=== PATIENT | female | born 1950 | race Caucasian/White ===

== ENCOUNTER → 2018-03-07 04:00 | Outpatient (CLI) | payer BC, SELFPAY ==
[2018-03-07 10:08] LABS: HCT 35.8 % (36.0-46.0); HGB 11.5 g/dL (12.0-15.5); Lymphocytes % 16.3; Mean Corp. HGB Concentration 32.1 g/dL (32.0-36.0); Mean Corpuscular Hemoglobin 26.6 pg (27.0-33.0); Mean Corpuscular Volume 82.7 fL (80-95); Mean Platelet Volume 10.4 fL (8.0-11.0); Monocytes % 6.3; Platelet Count 327 x1000/uL (130-400); RBC 4.33 m/cumm (4.00-5.20); RBC Distribution Width 15.1 % (11.7-14.6); White Blood Cell Count 7.91 k/cumm (4.4-10.8)
[2018-03-07 10:09] LABS: Abs Immature Grans 0.01 k/cumm (0.0-0.09); Absolute Basophil Count 0.01 k/cumm (0.0-0.2); Absolute Eosinophil Count 0.33 k/cumm (0.0-0.7); Absolute Lymphocyte Count 1.29 k/cumm (1.2-3.4); Absolute Neutrophil Count 5.77 k/cumm (1.2-6.7); Basophils % 0.1; Eosinophils % 4.2; Immature Grans % 0.1
[2018-03-07 10:47] LABS: ESR 26 MM/HR (0-30)
[2018-03-07 11:29] LABS: ALT 26 U/L (12-78); AST 18 U/L (15-37); Alkaline Phosphatase 95 U/L (46-116); BUN 12 mg/dL (7-18); Bilirubin, Total 0.7 mg/dL (0.2-1.0); CREATININE 1.05 mg/dL (0.55-1.02); Chloride 105 mmol/L (98-107); Estimated GFR 52.43 (mL/min/1.73m2); Glucose 100 mg/dL (70-100); Potassium 3.7 mmol/L (3.5-5.1); Sodium 141 mmol/L (136-145); Total Protein 7.2 g/dL (6.4-8.2)
== END ==
PROVIDERS: PCP Nurse Practitioner Family; Visit Provider Internal Medicine Rheumatology
DX: M06.9 Rheumatoid arthritis, unspecified (principal); Z79.899 Other long term (current) drug therapy
CPT/HCPCS: 36415; 80053; 85652; 85025

== ENCOUNTER 2018-07-11 01:55 | Outpatient (CLI) | payer BC, SELFPAY ==
[2018-07-11 08:25] LABS: Abs Immature Grans 0.01 k/cumm (0.0-0.09); Absolute Basophil Count 0.02 k/cumm (0.0-0.2); Absolute Eosinophil Count 0.28 k/cumm (0.0-0.7); Absolute Lymphocyte Count 1.33 k/cumm (1.2-3.4); Absolute Monocyte Count 0.53 k/cumm (0.11-0.7); Absolute Neutrophil Count 6.51 k/cumm (1.2-6.7); Basophils % 0.2; Eosinophils % 3.2; HGB 12.7 g/dL (12.0-15.5); Immature Grans % 0.1; Lymphocytes % 15.3; Mean Corp. HGB Concentration 32.6 g/dL (32.0-36.0); Mean Corpuscular Volume 82.8 fL (80-95); Mean Platelet Volume 10.1 fL (8.0-11.0); Monocytes % 6.1; Neutrophils % 75.1; Platelet Count 341 x1000/uL (130-400); RBC 4.71 m/cumm (4.00-5.20); RBC Distribution Width 14.6 % (11.7-14.6); White Blood Cell Count 8.68 k/cumm (4.4-10.8)
[2018-07-11 09:55] LABS: ALT 20 U/L (12-78); AST 16 U/L (15-37); Albumin 4.3 g/dL (3.4-5.0); Alkaline Phosphatase 93 U/L (46-116); BUN 10 mg/dL (7-18); Bilirubin, Total 0.7 mg/dL (0.2-1.0); CREATININE 0.97 mg/dL (0.55-1.02); Calcium 9.7 mg/dL (8.5-10.1); Chloride 103 mmol/L (98-107); Estimated GFR 57.46 (mL/min/1.73m2); Glucose 90 mg/dL (70-100); Potassium 3.8 mmol/L (3.5-5.1); Sodium 141 mmol/L (136-145); Total Protein 7.6 g/dL (6.4-8.2)
[2018-07-11 09:56] LABS: ESR 23 MM/HR (0-30)
== END 2018-07-11 02:15 ==
PROVIDERS: PCP Nurse Practitioner Family; Visit Provider Internal Medicine Rheumatology
DX: M06.9 Rheumatoid arthritis, unspecified (principal); Z79.899 Other long term (current) drug therapy
CPT/HCPCS: 36415; 80053; 85652; 85025

== ENCOUNTER 2018-12-26 02:14 | Outpatient (CLI) | payer BC, SELFPAY ==
[2018-12-26 11:30] LABS: Absolute Basophil Count 0.03 k/cumm (0.0-0.2); Absolute Eosinophil Count 0.29 k/cumm (0.0-0.7); Absolute Lymphocyte Count 1.19 k/cumm (1.2-3.4); Absolute Monocyte Count 0.31 k/cumm (0.11-0.7); Absolute Neutrophil Count 3.32 k/cumm (1.2-6.7); Basophils % 0.6; Eosinophils % 5.6; HCT 38.6 % (36.0-46.0); HGB 12.7 g/dL (12.0-15.5); Lymphocytes % 23.2; Mean Corp. HGB Concentration 32.9 g/dL (32.0-36.0); Mean Corpuscular Hemoglobin 27.7 pg (27.0-33.0); Mean Corpuscular Volume 84.1 fL (80-95); Mean Platelet Volume 10.8 fL (8.0-11.0); Neutrophils % 64.6; Platelet Count 350 x1000/uL (130-400); RBC 4.59 m/cumm (4.00-5.20); RBC Distribution Width 14.3 % (11.7-14.6); White Blood Cell Count 5.14 k/cumm (4.4-10.8)
[2018-12-26 11:42] LABS: ALT 27 U/L (12-78); AST 18 U/L (15-37); Alkaline Phosphatase 80 U/L (46-116); Anion Gap 9.3 mmol/L (3-11); BUN 9 mg/dL (7-18); Bilirubin, Total 0.7 mg/dL (0.2-1.0); CO2 26.7 mmol/L (21.0-32.0); CREATININE 0.95 mg/dL (0.55-1.02); Calcium 9.5 mg/dL (8.5-10.1); Chloride 103 mmol/L (98-107); Estimated GFR 58.68 (mL/min/1.73m2); Glucose 97 mg/dL (70-100); Potassium 4.3 mmol/L (3.5-5.1); Sodium 139 mmol/L (136-145); Total Protein 7.2 g/dL (6.4-8.2)
[2018-12-26 11:45] LABS: Hemoglobin A1C 5.4 % (4.5-6.2)
[2018-12-26 12:04] LABS: ESR 21 MM/HR (0-30)
[2018-12-26 12:12] LABS: Cholesterol 200 mg/dL (50-200); HDL Cholesterol 81 mg/dL (40-60); LDL CHOLESTEROL 95 mg/dL (<100); TSH 1.78 uIU/mL (0.358-3.74); Triglyceride 127 mg/dL (30-150); Vitamin B12 650 pg/mL (193-986)
[2018-12-26 12:36] LABS: FREE T4 0.91 ng/dL (0.76-1.46)
[2018-12-27 17:01] LABS: Intrinsic Factor Blocking Ab Negative (Negative)
[2018-12-31 20:20] LABS: Parietal Cell Ab, IgG <10.0 U
== END 2018-12-26 02:34 ==
PROVIDERS: PCP Nurse Practitioner Family; Visit Provider Internal Medicine Rheumatology
DX: E78.5 Hyperlipidemia, unspecified (principal); E53.8 Deficiency of other specified B group vitamins; M06.9 Rheumatoid arthritis, unspecified; Z79.899 Other long term (current) drug therapy
CPT/HCPCS: 80053; 80061; 83516; 83721; 85652; 82607; 83036; 84439; 84443; 85025; 86340

== ENCOUNTER 2019-05-22 01:46 | Outpatient (CLI) | payer BC, SELFPAY ==
[2019-05-22 10:28] LABS: ALT 24 U/L (14-59); AST 16 U/L (15-37); Alkaline Phosphatase 78 U/L (46-116); Anion Gap 11.4 mmol/L (3-11); BUN 10 mg/dL (7-18); Bilirubin, Total 0.6 mg/dL (0.2-1.0); CO2 27.6 mmol/L (21.0-32.0); CREATININE 0.99 mg/dL (0.55-1.02); Calcium 9.5 mg/dL (8.5-10.1); Chloride 102 mmol/L (98-107); Estimated GFR 55.95 (mL/min/1.73m2); Glucose 90 mg/dL (70-100); Potassium 4.1 mmol/L (3.5-5.1); Sodium 141 mmol/L (136-145); Total Protein 7.9 g/dL (6.4-8.2)
[2019-05-22 10:31] LABS: Abs Immature Grans 0.01 k/cumm (0.0-0.09); Absolute Basophil Count 0.02 k/cumm (0.0-0.2); Absolute Eosinophil Count 0.42 k/cumm (0.0-0.7); Absolute Lymphocyte Count 1.31 k/cumm (1.2-3.4); Absolute Monocyte Count 0.51 k/cumm (0.11-0.7); Absolute Neutrophil Count 4.31 k/cumm (1.2-6.7); Basophils % 0.3; Eosinophils % 6.4; HCT 36.4 % (36.0-46.0); HGB 11.4 g/dL (12.0-15.5); Immature Grans % 0.2; Lymphocytes % 19.9; Mean Corp. HGB Concentration 31.3 g/dL (32.0-36.0); Mean Corpuscular Hemoglobin 26.7 pg (27.0-33.0); Mean Corpuscular Volume 85.2 fL (80-95); Mean Platelet Volume 10.1 fL (8.0-11.0); Monocytes % 7.8; Neutrophils % 65.4; Platelet Count 353 x1000/uL (130-400); RBC 4.27 m/cumm (4.00-5.20); RBC Distribution Width 14.8 % (11.7-14.6); White Blood Cell Count 6.58 k/cumm (4.4-10.8)
[2019-05-22 12:12] LABS: ESR 43 mm/hr (0-30)
== END 2019-05-22 02:06 ==
PROVIDERS: PCP Nurse Practitioner Family; Visit Provider Internal Medicine Rheumatology
DX: M06.9 Rheumatoid arthritis, unspecified (principal); Z79.899 Other long term (current) drug therapy
CPT/HCPCS: 36415; 80053; 85652; 85025

== ENCOUNTER 2019-07-01 02:22 | Outpatient (CLI) | payer BC, SELFPAY ==
[2019-07-01 11:47] LABS: Abs Immature Grans 0.02 k/cumm (0.0-0.09); Absolute Basophil Count 0.02 k/cumm (0.0-0.2); Absolute Eosinophil Count 0.23 k/cumm (0.0-0.7); Absolute Lymphocyte Count 1.33 k/cumm (1.2-3.4); Absolute Monocyte Count 0.41 k/cumm (0.11-0.7); Absolute Neutrophil Count 4.15 k/cumm (1.2-6.7); Basophils % 0.3; Eosinophils % 3.7; HCT 38.2 % (36.0-46.0); HGB 12.3 g/dL (12.0-15.5); Immature Grans % 0.3; Lymphocytes % 21.6; Mean Corp. HGB Concentration 32.2 g/dL (32.0-36.0); Mean Corpuscular Hemoglobin 26.5 pg (27.0-33.0); Mean Corpuscular Volume 82.3 fL (80-95); Mean Platelet Volume 10.4 fL (8.0-11.0); Monocytes % 6.7; Neutrophils % 67.4; Platelet Count 391 x1000/uL (130-400); RBC 4.64 m/cumm (4.00-5.20); RBC Distribution Width 14.2 % (11.7-14.6); White Blood Cell Count 6.16 k/cumm (4.4-10.8)
[2019-07-01 12:18] LABS: ALT 21 U/L (14-59); AST 15 U/L (15-37); Albumin 4.1 g/dL (3.4-5.0); Alkaline Phosphatase 71 U/L (46-116); Anion Gap 11.3 mmol/L (3-11); BUN 12 mg/dL (7-18); Bilirubin, Total 0.5 mg/dL (0.2-1.0); CO2 25.7 mmol/L (21.0-32.0); CREATININE 0.89 mg/dL (0.55-1.02); Calcium 9.5 mg/dL (8.5-10.1); Chloride 104 mmol/L (98-107); Glucose 93 mg/dL (74-106); Sodium 141 mmol/L (136-145); Total Protein 7.2 g/dL (6.4-8.2)
[2019-07-01 13:57] LABS: ESR 16 mm/hr (0-30)
== END 2019-07-01 02:42 ==
PROVIDERS: PCP Nurse Practitioner Family; Visit Provider Internal Medicine Rheumatology
DX: M06.9 Rheumatoid arthritis, unspecified (principal); Z79.899 Other long term (current) drug therapy
CPT/HCPCS: 36415; 80053; 85652; 85025

== ENCOUNTER 2019-12-30 05:15 | Outpatient (CLI) | payer BC, SELFPAY ==
[2019-12-30 10:05] LABS: Abs Immature Grans 0.01 k/cumm (0.0-0.09); Absolute Basophil Count 0.01 k/cumm (0.0-0.2); Absolute Lymphocyte Count 1.59 k/cumm (1.2-3.4); Absolute Monocyte Count 0.51 k/cumm (0.11-0.7); Basophils % 0.1; Eosinophils % 2.7; HCT 36.9 % (36.0-46.0); HGB 11.9 g/dL (12.0-15.5); Immature Grans % 0.1 %; Lymphocytes % 21.7; Mean Corp. HGB Concentration 32.2 g/dL (32.0-36.0); Mean Corpuscular Hemoglobin 27.1 pg (27.0-33.0); Mean Corpuscular Volume 84.1 fL (80-95); Mean Platelet Volume 10.4 fL (8.0-11.0); Neutrophils % 68.4; Platelet Count 392 x1000/uL (130-400); RBC 4.39 m/cumm (4.00-5.20); RBC Distribution Width 14.8 % (11.7-14.6); White Blood Cell Count 7.32 k/cumm (4.4-10.8)
[2019-12-30 10:35] LABS: ALT 25 U/L (14-59); AST 12 U/L (15-37); Albumin 4.2 g/dL (3.4-5.0); Alkaline Phosphatase 81 U/L (46-116); Anion Gap 7.3 mmol/L (3-11); BUN 9 mg/dL (7-18); Bilirubin, Total 0.4 mg/dL (0.2-1.0); CO2 26.7 mmol/L (21.0-32.0); CREATININE 1.07 mg/dL (0.55-1.02); Calcium 9.5 mg/dL (8.5-10.1); Chloride 103 mmol/L (98-107); Glucose 93 mg/dL (74-106); Potassium 3.9 mmol/L (3.5-5.1); Sodium 137 mmol/L (136-145); Total Protein 7.3 g/dL (6.4-8.2)
[2019-12-30 10:56] LABS: ESR 21 mm/hr (0-30)
== END 2019-12-30 05:35 ==
PROVIDERS: PCP Nurse Practitioner Family; Visit Provider Internal Medicine Rheumatology
DX: M05.9 Rheumatoid arthritis with rheumatoid factor, unspecified (principal); Z79.899 Other long term (current) drug therapy
CPT/HCPCS: 36415; 80053; 85652; 85025

== ENCOUNTER 2020-03-12 01:44 | Outpatient (CLI) | payer BC, SELFPAY ==
--- NOTE | 2020-03-12 06:00 | DI.MAMMO_ITS ---
EXAM: MG MAMMO SCREENING CLINICAL HISTORY: screening,Z12.39 TECHNIQUE: Bilateral full field digital CC and MLO mammographic images were obtained with 3D tomosyn thesis and utilizing computer aided detection (CAD). COMPARISON: Available for comparison. FINDINGS: Masses/Architectural Distortion: None seen. Microcalcifications: No suspicious pleomorphic-type are seen. Skin Thickening/Nipple Retraction: None. IMPRESSION: 1. No significant interval change with no specific features of malignancy noted. 2. Unless there is more urgent need, screening mammography is recommended, as per [employer] guidelines. BI-RADS Category 1 - Negative Breast Density - Category B - Scattered areas of fibroglandular density A negative radiographic report should not delay biopsy if a dominant or clinically suspicious mass is present. Up to ten percent of cancers are not identified on mammography. A negative report may reinforce clinical impression. Adenosis and dense breasts may obscure an underlying neoplasm. False positive reports average 6 to 10%. Patient will receive a letter notifying them of these results.
== END 2020-03-12 02:04 ==
PROVIDERS: PCP Nurse Practitioner Family; Visit Provider Nurse Practitioner Family
DX: Z12.31 Encounter for screening mammogram for malignant neoplasm of breast (principal); R92.2 Inconclusive mammogram
CPT/HCPCS: 77063; 77067

== ENCOUNTER 2020-03-12 01:45 | Outpatient (CLI) | payer BC, SELFPAY ==
--- NOTE | 2020-03-12 | DI.RAD_ITS ---
EXAM: XR SHOULDER RT COMPLETE 2+V CLINICAL HISTORY: CHRONIC RT SHOULDER PAIN,M25.511,G89.29,RA,ASSESS FOR SIGNS OF INFLAMMATORY. TECHNIQUE: 2D digital imaging was performed. COMPARISON: No exams were available for comparison FINDINGS: BONES: No acute fracture is present. No bony destructive lesion is seen. Bones are normally mineraliz ed. JOINTS: No dislocation present. Mild degenerative changes are seen at the acromioclavicular joint linda racterized by hypertrophic spurring. The glenohumeral joint is unremarkable. SOFT TISSUE: Normal. IMPRESSION: Mild degenerative changes of the right acromioclavicular joint. DATA REPOSITORY: RADIATION DOSE DELIVERED:
== END 2020-03-12 02:05 ==
PROVIDERS: PCP Nurse Practitioner Family; Visit Provider Internal Medicine Rheumatology
DX: M19.011 Primary osteoarthritis, right shoulder (principal); G89.29 Other chronic pain; M25.511 Pain in right shoulder
CPT/HCPCS: 73030

== ENCOUNTER 2020-05-12 02:30 | Outpatient (CLI) | payer BC, SELFPAY ==
[2020-05-12 12:31] LABS: Abs Immature Grans 0.01 10^3/uL (0.0-0.06); Absolute Basophil Count 0.03 10^3/uL (0.0-0.2); Absolute Monocyte Count 0.32 10^3/uL (0.1-0.8); Absolute Neutrophil Count 3.41 10^3/uL (1.2-6.7); Basophils % 0.6; Eosinophils % 3.9; HCT 37.9 % (36.0-46.0); HGB 11.9 g/dL (11.2-15.7); Immature Grans % 0.2; Lymphocytes % 23.2; MCH 26.7 pg (27.0-33.0); MCHC 31.4 % (32.0-36.0); MPV 10.6 fL (8.0-11.0); Monocytes % 6.2; Neutrophils % 65.9; Nucleated RBC 0 %; Platelet Count 380 10^3/uL (130-400); RBC 4.46 10^6/uL (3.93-5.22); RDW 14.3 % (11.7-14.6); RDW-SD 43.4 fL; WBC 5.17 10^3/uL (4.4-10.8)
[2020-05-12 12:52] LABS: ALT 22 U/L (14-59); AST 18 U/L (15-37); Albumin 4.2 g/dL (3.4-5.0); Alkaline Phosphatase 75 U/L (46-116); Anion Gap 12.1 mmol/L (3-11); BUN 12 mg/dL (7-18); Bilirubin, Total 0.5 mg/dL (0.2-1.0); CO2 25.9 mmol/L (21.0-32.0); CREATININE 1.01 mg/dL (0.55-1.02); Calcium 9.4 mg/dL (8.5-10.1); Chloride 103 mmol/L (98-107); Estimated GFR 54.51 (mL/min/1.73m2); Glucose 100 mg/dL (74-106); Potassium 4.3 mmol/L (3.5-5.1); Sodium 141 mmol/L (136-145); Total Protein 7.3 g/dL (6.4-8.2)
[2020-05-12 13:14] LABS: Calculated LDL 95 mg/dL (<100); Cholesterol 195 mg/dL (<200); HDL Cholesterol 78 mg/dL (40-60); Triglyceride 112 mg/dL (<150); Vitamin B12 1856 pg/mL (193-986)
[2020-05-12 13:36] LABS: ESR 18 mm/hr (0-30)
[2020-05-13 04:29] LABS: Vitamin D 25 Total 19.4 ng/ml (30-100)
== END 2020-05-12 02:50 ==
PROVIDERS: PCP Nurse Practitioner Family; Visit Provider Internal Medicine Rheumatology
DX: M05.9 Rheumatoid arthritis with rheumatoid factor, unspecified (principal); Z79.899 Other long term (current) drug therapy; E55.9 Vitamin D deficiency, unspecified; E78.5 Hyperlipidemia, unspecified; E53.8 Deficiency of other specified B group vitamins; M85.80 Other specified disorders of bone density and structure, unspecified site
CPT/HCPCS: 36415; 80053; 80061; 82306; 85652; 82607; 85025

== ENCOUNTER 2020-11-01 04:21 | Outpatient (CLI) | payer OTHER, SELFPAY ==
[2020-11-01 12:37] LABS: ESR 22 mm//hr (0-30)
[2020-11-01 12:38] LABS: Abs Immature Grans 0.03 10^3/uL (0.0-0.06); Absolute Basophil Count 0.03 10^3/uL (0.0-0.2); Absolute Eosinophil Count 0.25 10^3/uL (0.0-0.7); Absolute Lymphocyte Count 1.18 10^3/uL (1.2-3.4); Absolute Monocyte Count 0.43 10^3/uL (0.1-0.8); Absolute Neutrophil Count 3.45 10^3/uL (1.2-6.7); Basophils % 0.6; Eosinophils % 4.7; HGB 12.4 g/dL (11.2-15.7); Immature Grans % 0.6; MCH 26.6 pg (27.0-33.0); MCHC 31.8 % (32.0-36.0); MCV 83.7 fL (80-95); MPV 10.8 fL (8.0-11.0); Neutrophils % 64.1; Nucleated RBC 0 %; Platelet Count 346 10^3/uL (130-400); RBC 4.66 10^6/uL (3.93-5.22); RDW 13.8 % (11.7-14.6); RDW-SD 41.2 fL; WBC 5.37 10^3/uL (4.4-10.8)
[2020-11-01 13:03] LABS: ALT 21 U/L (14-59); AST 16 U/L (15-37); Albumin 4.1 g/dL (3.4-5.0); Alkaline Phosphatase 92 U/L (46-116); Anion Gap 11.4 mmol/L (3-11); BUN 11 mg/dL (7-18); Bilirubin, Total 0.2 mg/dL (0.2-1.0); CO2 27.6 mmol/L (21.0-32.0); Calcium 10.2 mg/dL (8.5-10.1); Chloride 102 mmol/L (98-107); Estimated GFR 54.97 (mL/min/1.73m2); Glucose 94 mg/dL (74-106); Potassium 4.1 mmol/L (3.5-5.1); Sodium 141 mmol/L (136-145); Total Protein 7.5 g/dL (6.4-8.2)
[2020-11-01 13:15] LABS: Vitamin D 25 Total 20.3 ng/mL (30-100)
== END 2020-11-01 04:22 | disposition home or self-care (01) ==
LOC: LOS 04:21
PROVIDERS: PCP Nurse Practitioner Family; Visit Provider Internal Medicine Rheumatology
DX: M06.9 Rheumatoid arthritis, unspecified (principal); E55.9 Vitamin D deficiency, unspecified
CPT/HCPCS: 36415; 80053; 82306; 85652; 85025

== ENCOUNTER 2021-02-15 08:30 | Outpatient (CLI) | payer OTHER, SELFPAY ==
[2021-02-15 12:42] LABS: Abs Immature Grans 0.03 10^3/uL (0.0-0.06); Absolute Basophil Count 0.03 10^3/uL (0.0-0.2); Absolute Lymphocyte Count 0.86 10^3/uL (1.2-3.4); Absolute Monocyte Count 0.45 10^3/uL (0.1-0.8); Absolute Neutrophil Count 5.78 10^3/uL (1.2-6.7); Basophils % 0.4; Eosinophils % 2.7; HCT 38.7 % (36.0-46.0); HGB 12.1 g/dL (11.2-15.7); Immature Grans % 0.4; Lymphocytes % 11.7; MCH 27.7 pg (27.0-33.0); MCHC 31.3 % (32.0-36.0); MCV 88.6 fL (80-95); Monocytes % 6.1; Neutrophils % 78.7; Nucleated RBC 0 %; Platelet Count 335 10^3/uL (130-400); RBC 4.37 10^6/uL (3.93-5.22); RDW 13.7 % (11.7-14.6); RDW-SD 44.6 fL; WBC 7.35 10^3/uL (4.4-10.8)
[2021-02-15 12:44] LABS: ESR 6 mm/hr (0-30)
[2021-02-15 13:11] LABS: ALT 19 U/L (14-59); AST 13 U/L (15-37); Albumin 4.1 g/dL (3.4-5.0); Alkaline Phosphatase 74 U/L (46-116); Anion Gap 9.1 mmol/L (3-11); BUN 10 mg/dL (7-18); Bilirubin, Total 0.5 mg/dL (0.2-1.0); CO2 25.9 mmol/L (21.0-32.0); CREATININE 0.9 mg/dL (0.55-1.02); Calcium 9.3 mg/dL (8.5-10.1); Chloride 105 mmol/L (98-107); Glucose 87 mg/dL (74-106); Potassium 4.3 mmol/L (3.5-5.1); Sodium 140 mmol/L (136-145)
== END 2021-02-15 08:31 | disposition home or self-care (01) ==
PROVIDERS: PCP Nurse Practitioner Family; Visit Provider Internal Medicine Rheumatology
DX: M06.9 Rheumatoid arthritis, unspecified (principal)
CPT/HCPCS: 36415; 80053; 85652; 85025

== ENCOUNTER 2021-03-23 01:36 | Outpatient (CLI) | payer OTHER, SELFPAY ==
--- NOTE | 2021-03-23 08:00 | DI.MAMMO_ITS ---
Exam(s) MAMMO SCREENING EXAM: MAMMO SCREENING CLINICAL HISTORY: screening, Z12.39. TECHNIQUE: Bilateral full field digital CC and MLO mammographic images were obtained with 3D tomosyn thesis and utilizing computer aided detection (CAD). COMPARISON: Prior mammograms dating back to 2013, the most recent being February 2020. FINDINGS: There are no new spiculated masses nor malignant appearing microcalcification groups. There is no significant architectural distortion nor skin thickening-retraction. IMPRESSION: No radiographic evidence of malignancy. BI-RADS Category 1 - Negative Breast Density - Category B - Scattered areas of fibroglandular density Breast density Category C or D implies that the patient has dense breast tissue. Dense breast tissue can make it harder to find cancer on a mammogram. Dense breast tissue is also associated with an incr eased risk of breast cancer. This information about the result of the mammogram report was provided to the patient to raise their awareness. Use this report when you speak with the patient about their risks for breast cancer, which includes their family history. At that time, you may recommend additional screening tests (Ultrasoun d or MRI) as these tests may add significant information. A negative radiographic report should not delay biopsy if a dominant or clinically suspicious mass is present. Up to ten percent of cancers are not identified on mammography. A negative report may reinforce clinical impression. Adenosis and dense breasts may obscure an underlying neoplasm. False positive reports average 6 to 10%. Patient will receive a letter notifying them of these results.
== END 2021-03-23 01:56 ==
PROVIDERS: PCP Nurse Practitioner Family; Visit Provider Nurse Practitioner
DX: Z12.31 Encounter for screening mammogram for malignant neoplasm of breast (principal)
CPT/HCPCS: 77063; 77067

== ENCOUNTER 2021-07-13 01:29 | Outpatient (CLI) | payer OTHER, SELFPAY ==
[2021-07-13 12:27] LABS: Abs Immature Grans 0.02 10^3/uL (0.0-0.06); Absolute Basophil Count 0.03 10^3/uL (0.0-0.2); Absolute Eosinophil Count 0.14 10^3/uL (0.0-0.7); Absolute Lymphocyte Count 1.47 10^3/uL (1.2-3.4); Absolute Monocyte Count 0.37 10^3/uL (0.1-0.8); Absolute Neutrophil Count 4.82 10^3/uL (1.2-6.7); Basophils % 0.4; HCT 35.8 % (36.0-46.0); HGB 11.3 g/dL (11.2-15.7); Immature Grans % 0.3; Lymphocytes % 21.5; MCH 26.9 pg (27.0-33.0); MCHC 31.6 % (32.0-36.0); MCV 85.2 fL (80-95); MPV 9.7 fL (8.0-11.0); Monocytes % 5.4; Neutrophils % 70.4; Nucleated RBC 0 %; Platelet Count 371 10^3/uL (130-400); RDW 13.4 % (11.7-14.6); RDW-SD 41.5 fL; WBC 6.85 10^3/uL (4.4-10.8)
[2021-07-13 12:28] LABS: ESR 26 mm/hr (0-30)
[2021-07-13 14:04] LABS: ALT 14 U/L (14-59); AST 13 U/L (15-37); Albumin 3.8 g/dL (3.4-5.0); Alkaline Phosphatase 90 U/L (46-116); Anion Gap 11.4 mmol/L (3-11); BUN 12 mg/dL (7-18); Bilirubin, Total 0.4 mg/dL (0.2-1.0); CO2 25.6 mmol/L (21.0-32.0); CREATININE 0.9 mg/dL (0.55-1.02); Calcium 9.1 mg/dL (8.5-10.1); Chloride 103 mmol/L (98-107); Glucose 86 mg/dL (74-106); Potassium 3.9 mmol/L (3.5-5.1); Sodium 140 mmol/L (136-145); Total Protein 6.9 g/dL (6.4-8.2)
[2021-07-14 00:46] LABS: Vitamin D 25 Total 22.3 ng/mL (30-100)
== END 2021-07-13 01:30 | disposition home or self-care (01) ==
LOC: LBO 01:30
PROVIDERS: Internal Medicine Rheumatology; PCP Nurse Practitioner Family; Visit Provider Nurse Practitioner Family
DX: E55.9 Vitamin D deficiency, unspecified (principal); M06.9 Rheumatoid arthritis, unspecified
CPT/HCPCS: 36415; 80053; 82306; 85652; 85025

== ENCOUNTER 2021-11-16 02:59 | Outpatient (CLI) | payer MEDICARE, SELFPAY ==
[2021-11-16 09:15] LABS: Abs Immature Grans 0.03 10^3/uL (0.0-0.06); Absolute Basophil Count 0.04 10^3/uL (0.0-0.2); Absolute Eosinophil Count 0.24 10^3/uL (0.0-0.7); Absolute Lymphocyte Count 1.02 10^3/uL (1.2-3.4); Absolute Monocyte Count 0.35 10^3/uL (0.1-0.8); Absolute Neutrophil Count 4.85 10^3/uL (1.2-6.7); Basophils % 0.6; Eosinophils % 3.7; HCT 36.2 % (36.0-46.0); HGB 11.2 g/dL (11.2-15.7); Immature Grans % 0.5; Lymphocytes % 15.6; MCH 27.1 pg (27.0-33.0); MCHC 30.9 % (32.0-36.0); MCV 87.7 fL (80-95); MPV 9.6 fL (8.0-11.0); Monocytes % 5.4; Neutrophils % 74.2; Platelet Count 362 10^3/uL (130-400); RBC 4.13 10^6/uL (3.93-5.22); RDW 13.5 % (11.7-14.6); RDW-SD 43.5 fL; WBC 6.53 10^3/uL (4.4-10.8)
[2021-11-16 09:21] LABS: ESR 11 mm/hr (0-30)
[2021-11-16 10:25] LABS: ALT 20 U/L (14-59); AST 18 U/L (15-37); Albumin 4.2 g/dL (3.4-5.0); Alkaline Phosphatase 87 U/L (46-116); Anion Gap 10.2 mmol/L (3-11); BUN 13 mg/dL (7-18); Bilirubin, Total 0.5 mg/dL (0.2-1.0); CO2 26.8 mmol/L (21.0-32.0); CREATININE 0.9 mg/dL (0.55-1.02); Calcium 9.4 mg/dL (8.5-10.1); Chloride 103 mmol/L (98-107); Glucose 97 mg/dL (74-106); Potassium 4.3 mmol/L (3.5-5.1); Sodium 140 mmol/L (136-145); Total Protein 7.3 g/dL (6.4-8.2)
== END 2021-11-16 03:00 | disposition home or self-care (01) ==
LOC: LBO 02:59
PROVIDERS: PCP Nurse Practitioner Family; Visit Provider Internal Medicine Rheumatology
DX: M05.79 Rheumatoid arthritis with rheumatoid factor of multiple sites without organ or systems involvement (principal); Z79.899 Other long term (current) drug therapy
CPT/HCPCS: 36415; 80053; 85652; 85025

== ENCOUNTER 2021-11-23 04:57 | Outpatient (CLI) | payer MEDICARE, SELFPAY ==
[2021-11-25 09:22] LABS: HBs Antibody, Quant 4.2 mIU/mL (See Note); Hepatitis B Surface Ab Negative (See Note)
[2021-11-25 09:37] LABS: Hepatitis B Surface Ag Negative (Negative)
[2021-11-25 10:14] LABS: Hepatitis C Ab w Rflx HCV PCR Negative (Negative)
[2021-11-25 12:54] LABS: TB Interpretation Negative (Negative)
== END 2021-11-23 04:58 | disposition home or self-care (01) ==
LOC: LBO 04:57
PROVIDERS: PCP Nurse Practitioner Family; Visit Provider Internal Medicine Rheumatology
DX: Z11.59 Encounter for screening for other viral diseases (principal)
CPT/HCPCS: 36415; 86706; 86803; 87340; 86480

== ENCOUNTER 2021-12-23 01:37 | Outpatient (CLI) | payer MEDICARE, SELFPAY ==
[2021-12-26 11:44] LABS: Hep B Core Antibody Negative (Negative)
== END 2021-12-23 01:38 | disposition home or self-care (01) ==
LOC: LOS 01:37
PROVIDERS: PCP Nurse Practitioner Family; Visit Provider Internal Medicine Rheumatology
DX: Z11.59 Encounter for screening for other viral diseases (principal)
CPT/HCPCS: 36415; 86704

== ENCOUNTER 2022-04-06 03:18 | Outpatient (CLI) | payer MEDICARE, SELFPAY ==
[2022-04-06 12:21] LABS: Abs Immature Grans 0.02 10^3/uL (0.0-0.06); Absolute Basophil Count 0.03 10^3/uL (0.0-0.2); Absolute Eosinophil Count 0.29 10^3/uL (0.0-0.7); Absolute Lymphocyte Count 1.02 10^3/uL (1.2-3.4); Absolute Monocyte Count 0.38 10^3/uL (0.1-0.8); Absolute Neutrophil Count 4.56 10^3/uL (1.2-6.7); Basophils % 0.5; Eosinophils % 4.6; HCT 36.1 % (36.0-46.0); HGB 11.6 g/dL (11.2-15.7); Immature Grans % 0.3; Lymphocytes % 16.2; MCH 27.5 pg (27.0-33.0); MCHC 32.1 % (32.0-36.0); MCV 86 fL (80-95); MPV 10.5 fL (8.0-11.0); Neutrophils % 72.4; Platelet Count 346 10^3/uL (130-400); RBC 4.22 10^6/uL (3.93-5.22); RDW 15.3 % (11.7-14.6); RDW-SD 46.6 fL
[2022-04-06 12:47] LABS: ESR 8 mm/hr (0-30)
[2022-04-06 12:55] LABS: ALT 21 U/L (14-59); AST 22 U/L (15-37); Albumin 3.9 g/dL (3.4-5.0); Alkaline Phosphatase 75 U/L (46-116); Anion Gap 11.7 mmol/L (3-11); BUN 10 mg/dL (7-18); Bilirubin, Total 0.9 mg/dL (0.2-1.0); CO2 26.3 mmol/L (21.0-32.0); Calcium 9.1 mg/dL (8.5-10.1); Chloride 101 mmol/L (98-107); Estimated GFR 60.61 (mL/min/1.73m2); Glucose 86 mg/dL (74-106); Potassium 3.5 mmol/L (3.5-5.1); Sodium 139 mmol/L (136-145); Total Protein 7.5 g/dL (6.4-8.2)
== END 2022-04-06 03:19 | disposition home or self-care (01) ==
LOC: LOS 03:18
PROVIDERS: PCP Nurse Practitioner Family; Visit Provider Internal Medicine Rheumatology
DX: M06.9 Rheumatoid arthritis, unspecified (principal); Z79.899 Other long term (current) drug therapy
CPT/HCPCS: 36415; 80053; 85652; 85025

== ENCOUNTER 2022-08-04 02:17 | Outpatient (CLI) | payer MEDICARE, SELFPAY ==
[2022-08-04 12:53] LABS: Abs Immature Grans 0.01 10^3/uL (0.0-0.06); Absolute Basophil Count 0.03 10^3/uL (0.0-0.2); Absolute Eosinophil Count 0.28 10^3/uL (0.0-0.7); Absolute Lymphocyte Count 1.13 10^3/uL (1.2-3.4); Absolute Monocyte Count 0.29 10^3/uL (0.1-0.8); Absolute Neutrophil Count 3.49 10^3/uL (1.2-6.7); Basophils % 0.6; Eosinophils % 5.4; HCT 34.3 % (36.0-46.0); HGB 10.5 g/dL (11.2-15.7); Immature Grans % 0.2; Lymphocytes % 21.6; MCH 27.1 pg (27.0-33.0); MCHC 30.6 % (32.0-36.0); MCV 88 fL (80-95); MPV 9.8 fL (8.0-11.0); Monocytes % 5.5; Neutrophils % 66.7; Platelet Count 336 10^3/uL (130-400); RBC 3.88 10^6/uL (3.93-5.22); RDW 14.8 % (11.7-14.6); RDW-SD 47.1 fL; WBC 5.23 10^3/uL (4.4-10.8)
[2022-08-04 13:00] LABS: ALT 17 U/L (14-59); AST 18 U/L (15-37); Alkaline Phosphatase 78 U/L (46-116); Anion Gap 9.1 mmol/L (3-11); BUN 15 mg/dL (7-18); Bilirubin, Total 0.4 mg/dL (0.2-1.0); C-Reactive Protein 0.32 mg/dL (0.0-0.3); CO2 25.9 mmol/L (21.0-32.0); Calcium 9.1 mg/dL (8.5-10.1); Chloride 104 mmol/L (98-107); Estimated GFR 60.61 (mL/min/1.73m2); Glucose 103 mg/dL (74-106); Potassium 3.8 mmol/L (3.5-5.1); Sodium 139 mmol/L (136-145); Total Protein 7.4 g/dL (6.4-8.2); Uric Acid 5.5 mg/dL (2.6-6.0)
== END 2022-08-04 02:18 | disposition home or self-care (01) ==
LOC: LOS 02:18
PROVIDERS: PCP Nurse Practitioner Family; Visit Provider Internal Medicine Rheumatology
DX: M05.79 Rheumatoid arthritis with rheumatoid factor of multiple sites without organ or systems involvement (principal); Z79.899 Other long term (current) drug therapy; M25.561 Pain in right knee
CPT/HCPCS: 36415; 80053; 84550; 85025; 86140

== ENCOUNTER 2022-10-14 12:04 | Emergency (ER) | payer MEDICARE, SELFPAY ==
--- NOTE | 2022-10-14 12:00 | RT.EKG_ITS ---
APPROVED REPORT Exam: Resting ECG Reason for Exam: chest pain Patient Location: E HR:103 bpm ECG Measurements Heart Rate 103 AXIS AZ 150 P 55 QRSd 94 QRS 50 QT 355 T 9 QTc 466 Conclusion Sinus tachycardia...rate> 99 Probable left atrial enlargement...P >50mS, <-0.10mV V1 Physician: no stemi, Q3T3
[2022-10-14 12:08] VITALS: BP 177/61; PULSE 109; RESP 18; TEMP 37.3; O2SAT 99
--- NOTE | 2022-10-14 12:15 | DI.CT_ITS ---
Exam(s) CT CHEST PE CTA EXAM: CT CHEST PE CTA CLINICAL HISTORY: cough, SOB, r/o PE. TECHNIQUE: Imaging Protocol: Axial CT angiography was performed with multi-slice acquisition and mu lti-planar and/or 3D reconstructions. CONTRAST MATERIAL: Intravenous: Omnipaque 350 contrast volume:69 mL COMPARISON: No exams were available for comparison FINDINGS: Tracheobronchial tree: Patent where visualized. Pulmonary parenchyma: No consolidation or dominant measurable mass. No architectural distortion. Pulmonary Arteries: No evidence of filling defect to suggest pulmonary emboli. Mediastinum and Anai: No dominant adenopathy or fluid collection. The esophagus is unremarkable. Visualized thyroid gland: Unremarkable. Pleura: No effusion or pneumothorax. Heart: The heart is not dilated. Coronary artery calcifications are present. No pericardial effusion . Aorta: Thoracic aorta non-dilated. No evidence of dissection. Atherosclerosis is present. Upper abdomen: Unremarkable. Soft tissues: Unremarkable. Bones: Within normal limits for the patient's age. IMPRESSION: No evidence of pulmonary embolism, thoracic aortic dissection or aneurysm. RADIATION DOSE DELIVERED: 432.23mGy.cm Total DLP DATA REPOSITORY: All CT scans at this facility are submitted to the National Radiology Data Registry (NRDR) Dose Index Registry (DIR) with the [employer] (ACR). RADIATION OPTIMIZATION: All CT scans at this facility use at least one of these dose optimization te chniques: automated exposure control; mA and/or kV adjustment per patient size (includes targeted exa ms where dose is matched to clinical indication); or iterative reconstruction.
[2022-10-14] MEDS: Normal Saline 1,000 ML 1000 ML IV (12:35)
[2022-10-14 12:43] LABS: HCT 22.6 % (36.0-46.0); HGB 7.3 g/dL (11.2-15.7); MCH 28.7 pg (27.0-33.0); MCHC 32.3 % (32.0-36.0); MCV 89 fL (80-95); MPV 10.6 fL (8.0-11.0); Platelet Count 124 10^3/uL (130-400); RBC 2.54 10^6/uL (3.93-5.22); RDW 17.3 % (11.7-14.6); RDW-SD 52.9 fL; WBC 9.61 10^3/uL (4.4-10.8)
[2022-10-14 13:02] LABS: ALT 24 U/L (14-59); AST 20 U/L (15-37); Absolute Eosinophil Count 0.19 10^3/uL (0.0-0.7); Absolute Lymphocyte Count 1.54 10^3/uL (1.2-3.4); Absolute Monocyte Count 0.29 10^3/uL (0.1-0.8); Absolute Neutrophil Count 3.46 10^3/uL (1.2-6.7); Albumin 4.2 g/dL (3.4-5.0); Alkaline Phosphatase 80 U/L (46-116); Anion Gap 11.3 mmol/L (3-11); Atypical Lymphocytes % 4; BUN 13 mg/dL (7-18); Bands % 1; Bilirubin, Total 0.3 mg/dL (0.2-1.0); CO2 23.7 mmol/L (21.0-32.0); CREATININE 1.2 mg/dL (0.55-1.02); Calcium 9.3 mg/dL (8.5-10.1); Chloride 101 mmol/L (98-107); Estimated GFR 48.39 (mL/min/1.73m2); Glucose 120 mg/dL (74-106); Lipase 30 U/L (16-77); Potassium 3.5 mmol/L (3.5-5.1); Sodium 136 mmol/L (136-145); Total Protein 7.3 g/dL (6.4-8.2)
[2022-10-14 13:03] LABS: Diff Comment Manual Differential; Polychromasia Present
[2022-10-14 13:05] LABS: INR 1.1 (0.9-1.1); Other Cells % 43; PTT Activated 22.4 sec (21.5-31.9); Prothrombin Time 11.1 sec (9.3-11.0)
--- NOTE | 2022-10-14 13:06 | ED.GENADUL_ITS ---
Discharge Plan Disposition Patient Disposition: Home Condition: Good Discharge Details Clinical Impression: Chronic gastrointestinal bleeding, Anemia Primary Care Provider: Dominique Damon ED Provider: Tomas Chairez Home Meds and New Rx's Prescriptions: New pantoprazole [Protonix] 40 mg tablet,delayed release (DR/EC) 40 mg PO DAILY Qty: 60 0RF famotidine 40 mg tablet 40 mg PO BID Qty: 90 0RF No Action methotrexate sodium 2.5 mg tablet 15 mg PO QWEEK Patient Comments: [place]rich[place] [facility] [place] varicella-zoster gE-AS01B (PF) 50 mcg/0.5 mL suspension for reconstitution 0.5 ml IM ONCE Qty: 1 0RF Patient Comments: has not had Rx Instructions: 2 doses 2 months apart amlodipine 10 mg tablet 10 mg PO DAILY Qty: 90 4RF lansoprazole [Prevacid] 30 mg capsule,delayed release(DR/EC) 30 mg PO DAILY Qty: 90 4RF sertraline [Zoloft] 50 mg tablet 75 mg PO DAILY Qty: 145 4RF simvastatin 20 mg tablet 20 mg PO HS Qty: 90 4RF aspirin 325 MG tablet 325 mg PO DAILY ferrous sulfate 325 MG tablet 325 mg PO DAILY hydroxychloroquine [Plaquenil] 200 MG tablet 200 mg PO BID Qty: 180 calcium carbonate 500 MG tablet 500 mg PO DAILY Patient Comments: 05/09/16: 750mg PO daily. -BR triamcinolone acetonide 15 GM cream 1 gm Topical BID PRNQty: 80 Rx Instructions: apply a pea sized amount to the arms as needed acyclovir 200 MG capsule 200 mg PO QID PRNQty: 60 cholecalciferol (vitamin D3) 1,000 unit capsule 2,000 unit PO DAILY Qty: 90 Discharge Instructions Instructions: Anemia (ED) Additional Instructions: At this time you have a drop in your blood levels, this is likely from a slow bleed in your gastrointestinal tract. Please stop taking aspirin for the time being. Please take the famotidine and pantoprazole to help prevent any upper gastrointestinal bleed. Please avoid any spicy foods, tomato-based products or mint based products. We have placed a referral with the surgeon for prompt follow-up for potential colonoscopy. Additionally there is a slight abnormality noted in your blood cell counts, and your blood has been sent to pathology for further review. Please follow-up closely with your primary care provider in regards to this. If you notice any worsening of your symptoms, or any new symptoms such as vo miting, diarrhea, fever, chills, shortness of breath, chest pain, numbness, weakness, or fainting , please return immediately to the emergency department for reevaluation. Please follow up with your primary care provider as soon as possible for reassessment and reevaluation. As always, it was a pleasure participating in your medical care today. Referrals: Dominique Damon NP [Primary Care Provider] - Edilson Mosley MD [ [facility] STAFF PHYSICIAN] - Medical Decision Making 72-year-old female with a past medical history of GERD, hypertension, mild anxiety, osteopenia, high cholesterol, rheumatoid arthritis, who presents today for evaluation of shortness of breath. Patient states that for the last week she has had mild shortness of breath, it is worsened with activity, and slightly improved by rest. She has no associated exertional chest pain or pleuritic chest pain. She did have a brief episode of chest pain last evening while at rest, and it went away on its own. She has had a cough with mild yellow sputum for the past week. She has also noticed over the last few months that she has been on and off persistently sick with a mild upper respiratory infection which she attributes to her grandchildren. Denies PE risk factors such as recent long car rides, immobilization, recent surgery, prior history of DVT or PE, family history of PE or DVT, morbid obesity, exogenous estrogen and smoking, hemoptysis, history of cancer. No other complaints at this time. No history of cardiac disease. She did smoke when she was young, but quit in the 90s. Physical exam demonstrates well-appearing female, heart rate mildly elevated, lungs are clear. No calf tenderness. EKG shows no evidence of STEMI but does demonstrate evidence of a Q wave and inverted T wave in lead III. Concern for potential pulmonary embolism, pneumonia, or other abnormality. Cardiac etiology seems less likely. Will evaluate for these etiologies, monitor closely and reassess. 3:38 PM Laboratory work-up has returned, hemoglobin is taken a drop to 7.3, this is a three-point drop since her last hemoglobin 1-1/2 months ago. Hemoccult test was performed and it is positive, patient does take a 325 aspirin every day, she states for no apparent medical reason but she has just been doing this for quite some time. We recommended that she hold off on this for the time being. Laboratory work-up did show evidence of increased blasts, and they will be sending this for pathology. Electrolytes stable, creatinine stable. Troponin normal. Patient feels much improved with the blood and fluids. She is requesting to go home and be discharged. I do feel that this is reasonable as she is not having a massive GI bleed. She does need prompt colonoscopy and follow-up though. She does have a strong family history of colon cancer. We will recommend that the patient stops taking aspirin for the time being, we will start the patient on Protonix and famotidine outpatient to prevent any upper GI bleed component. She has been given Protonix here already. Patient is otherwise stable for discharge. We will have her reassessed by the signout provider once of blood products are done, but otherwise patient can follow-up closely with outpatient services at her request. CT scan shows no evidence of pulmonary embolism, dissection, or other significant abnormality. I have extensively reviewed the treatment plan and discharge instructions with the patient. I have addressed all patient concerns at this time. The patient was made aware of what symptoms to monitor for that would warrant a return to the emergency department. Discussed the plan with the patient, they demonstrate verbal understanding and agreement with our assessment and plan at this time. The documentation in this chart was dictated using [employer] dictation software. Please excuse any dictation errors. FINDINGS: Pulmonary arteries: No evidence of pulmonary embolus. Aorta: Mild calcifications of the thoracic aorta. Low-density line at the left lateral aspect of the ascending thoracic aorta on the coronal reconstructions appear to extend into the main pulmonary artery and is more likely motion artifact and is not a dissection. Lungs: Unremarkable. No consolidation. No masses. Pleural spaces: Unremarkable. No pneumothorax. No pleural effusion. Heart: Unremarkable. No cardiomegaly. No pericardial effusion. Lymph nodes: Unremarkable. No enlarged lymph nodes. Bones/joints: Mild degenerative changes in the thoracic spine. No suspicious lytic or blastic bone lesions. Soft tissues: Unremarkable. IMPRESSION: No evidence of pulmonary embolus or other acute findings Thank you for allowing us to participate in the care of your patient. Dictated and Authenticated by: Inocente Azevedo MD 10/14/2022 3:15 PM Eastern Time ([place] & [place]) HPI General Date/Time Provider Initiated Documentation: 10/14/22 12:21 . HPI Narrative: 72-year-old female with a past medical history of GERD, hypertension, mild anxiety, osteopenia, high cholesterol, rheumatoid arthritis, who presents today for evaluation of shortness of breath. Patient states that for the last week she has had mild shortness of breath, it is worsened with activity, and sli ghtly improved by rest. She has no associated exertional chest pain or pleuritic chest pain. She did have a brief episode of chest pain last evening while at rest, and it went away on its own. She has had a cough with mild yellow sputum for the past week. She has also noticed over the last few months that she has been on and off persistently sick with a mild upper respiratory infection which she attributes to her grandchildren. Denies PE risk factors such as recent long car rides, immobilization, recent surgery, prior history of DVT or PE, family history of PE or DVT, morbid obesity, exogenous estrogen and smoking, hemoptysis, history of cancer. No other complaints at this time. No history of cardiac disease. Related Data Home Medications Medication Instructions Recorded Confirmed aspirin 325 mg tablet 325 mg PO DAILY 05/21/13 10/14/22 ferrous sulfate 325 mg (65 mg 325 mg PO DAILY 05/21/13 10/14/22 iron) tablet hydroxychloroquine 200 mg tablet 200 mg PO BID #180 tab-caps 06/12/13 10/14/22 (Plaquenil) calcium carbonate 500 mg calcium 500 mg PO DAILY 05/09/16 10/14/22 (1,250 mg) tablet acyclovir 200 mg capsule 200 mg PO QID PRN #60 tab-caps 12/18/17 10/14/22 triamcinolone acetonide 0.1 % 1 gm topical BID PRN #80 grams 12/18/17 10/14/22 topical cream cholecalciferol (vitamin D3) 25 2,000 unit PO DAILY #90 tab-caps 12/25/18 10/14/22 mcg (1,000 unit) capsule methotrexate sodium 2.5 mg tablet 15 mg PO QWEEK 12/25/18 10/14/22 varicella-zoster glycoE vacc-AS01B 0.5 ml IM ONCE #1 ea 02/21/21 10/14/22 adj(PF) 50 mcg/0.5 mL IM susp, kit amlodipine 10 mg tablet 10 mg PO DAILY #90 tabs 04/05/22 10/14/22 lansoprazole 30 mg capsule,delayed 30 mg PO DAILY #90 caps 04/05/22 10/14/22 release (Prevacid) sertraline 50 mg tablet (Zoloft) 75 mg PO DAILY #145 tabs 04/05/22 10/14/22 simvastatin 20 mg tablet 20 mg PO HS #90 tabs 04/05/22 10/14/22 famotidine 40 mg tablet 40 mg PO BID #90 tabs 10/14/22 pantoprazole 40 mg tablet,delayed 40 mg PO DAILY #60 tabs 10/14/22 release (Protonix) Previous Rx's Medication Instructions Recorded varicella-zoster glycoE vacc-AS01B 0.5 ml IM ONCE #1 ea 02/21/21 adj(PF) 50 mcg/0.5 mL IM susp, kit amlodipine 10 mg tablet 10 mg PO DAILY #90 tabs 04/05/22 lansoprazole 30 mg capsule,delayed 30 mg PO DAILY #90 caps 04/05/22 release (Prevacid) sertraline 50 mg tablet (Zoloft) 75 mg PO DAILY #145 tabs 04/05/22 simvastatin 20 mg tablet 20 mg PO HS #90 tabs 04/05/22 famotidine 40 mg tablet 40 mg PO BID #90 tabs 10/14/22 pantoprazole 40 mg tablet,delayed 40 mg PO DAILY #60 tabs 10/14/22 release (Protonix) Allergies Allergy/AdvReac Type Severity Reaction Status Date / Time Sulfa (Sulfonamide Allergy Intermediate swelling, Verified 10/14/22 12:53 Antibiotics) rash General Stated Complaint: RespSymp CHRISTOPHER: 3 Review of Systems All systems reviewed & are unremarkable except as noted in HPI and below PFSH All Active Problems (Updated 10/14/22 @ 15:42 by Tomas Chairez DO) Chronic gastrointestinal bleeding (Acute) Anemia (Chronic) Rheumatoid arthritis (Chronic) [place] [facility] [place]. 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 Son No problems noted. Maternal Grandfather , at 52 Multiple sclerosis Heart disease Maternal Grandmother , at 56 of stroke Stroke Heart disease Hypertension Paternal Grandfather , at 74 Lung cancer Paternal Grandmother , at 85 Dementia Social History Smoking/Tobacco Use Status: Former Tobacco Use Tobacco: How many years used: 20 Second Hand Exposure: No Smoking risk assessment performed?: Yes Alcohol Intake: former Drug use: Never Substance use type: does not use Caregiver/Support person: No Household members: none Housing: house Number of Children: 2 number of grandchildren: 5 Communication Needs: None Do you need help understanding health information?: Never 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 Pets and animals: Yes Pets and animals: cat(s) Sexually active: No Do you think of yourself as: straight/heterosexual Current gender identity: female What is your relationship status?: How often do you talk on the phone with friends or family?: three or more times per week How often do you get together with friends or relatives?: twice per week How often do you attend taoist or restoration services?: 1-3 times per year Do you belong to any clubs or organized social groups?: no Panel score (0-1 are the most socially isolated patients): 1 What type of physical activity do you participate in: walking Duration: 15-30 minutes/day Frequency: 3-4 times per week Milla/Taoist: Latter-Day Special milla needs: No Seatbelt use: always Helmet use: No Drive intox or ride w/intox lease purchase driver: No Additional Social history: Enjoys golfing Female Reproductive History Menstrual Menopause type: natural History History 2 Para 2 Hx # Term Pregnancies Multiple births Hx # Pregnancies Ectopic pregnancies AB induced Hx Number of Living Children 2 AB spontaneous Exam Narrative Exam Narrative: 1.Const: Well-nourished, Well-developed, appearing stated age 2.Eyes: PERRL, no conjunctival injection, and symmetrical lids. 3.ENT: Atraumatic external nose and ears. Moist MM. Neck: Symmetric, trachea midline, No thyromegaly. 4.CVS: +S1/S2, No murmurs or gallops. Peripheral pulses 2+ and equal in all extremities. Brisk capillary refill in all extremities. 5.RESP: Unlabored respiratory effort. Clear to auscultation bilaterally. No wheezes rales or rhonchi 6.GI: Soft, Nontender/Nondistended, No hepatosplenomegaly. No guarding or rebound. 7.MSK: Normocephalic/Atraumatic, Extremities w/o deformity or ttp No cyanosis or clubbing, Normal movement of all extremities, no calf tenderness 8.Skin: Warm, Dry. No rashes or lesions. 9.Neuro: air quality manager II-XII grossly intact. Sensation grossly intact, no focal neurologic deficits. 10.Psych: (AAO) x3. Appropriate mood and affect Course Vital Signs Vital signs: Vital Signs Temperature 37.3 C 10/14/22 12:08 Pulse 109 H 10/14/22 12:08 Respiratory Rate 18 10/14/22 12:08 Blood Pressure 177/61 H 10/14/22 12:08 Pulse Oximetry 99 10/14/22 12:08 Temperature 37.3 C 10/14/22 12:08 Temperature Source Oral 10/14/22 12:08 Pulse 109 H 10/14/22 12:08 Respiratory Rate 18 10/14/22 12:08 Respiratory Effort Short of Breath 10/14/22 12:22 Respiratory Depth Normal 10/14/22 12:22 Blood Pressure 177/61 H 10/14/22 12:08 Pulse Oximetry 99 10/14/22 12:08 Oxygen Delivery Method Room Air 10/14/22 12:08 Oxygen Flow Rate 0 03/18/23 12:08 Lab/Test Results Lab/Test Results: Laboratory Tests Range/Units 10/14/22 10/14/22 12:35 12:35 WBC (4.4-10.8) 10^3/uL 9.61 RBC (3.93-5.22) 10^6/uL 2.54 L Hgb (11.2-15.7) g/dL 7.3 L Hct (36.0-46.0) % 22.6 L MCV (80-95) fL 89 MCH (27.0-33.0) pg 28.7 MCHC (32.0-36.0) % 32.3 RDW (11.7-14.6) % 17.3 H Plt Count (130-400) 10^3/uL 124 L MPV (8.0-11.0) fL 10.6 Immature Gran % 0.0 Neutrophils % 35.0 Band Neutrophils % 1 Lymphocytes % 12.0 Atypical Lymphs % 4 Monocytes % 3.0 Eosinophils % 2.0 Basophils % 0.0 Other Cells % 43 Nucleated RBC % (0.0-0.3) % 1.0 H Absolute Neutrophils (1.2-6.7) 10^3/uL 3.46 Absolute Lymphocytes (1.2-3.4) 10^3/uL 1.54 Absolute Monocytes (0.1-0.8) 10^3/uL 0.29 Absolute Eosinophils (0.0-0.7) 10^3/uL 0.19 Absolute Basophils (0.0-0.2) 10^3/uL 0.00 RBC Morphology See Below Polychromasia Present Lipase Cancelled POCUS Exam (ED) Limited Cardiac Exam DATE OF EXAM: 10/14/22 TIME OF EXAM: 13:54 PROVIDER THAT PERFORMED THE STUDY: Tomas Chairez IS THIS A REPEAT EXAM DURING THIS ENCOUNTER: no REASON FOR EXAM: Dyspnea VISUALIZED STRUCTURES: Left atrium, Left ventricle, Right ventricle and Interventricular septum VIEW OBTAINED: Parasternal long-axis PERTINENT FINDINGS/IMPRESSION: No apparent abnormalities Exam complete
[2022-10-14 13:08] LABS: Troponin I < 50 ng/L (<or=60)
[2022-10-14] MEDS: Omnipaque 350 MG/ML 100 ML BTL IJ (14:02)
[2022-10-14 14:03] LABS: COVID-19 PCR Negative (Negative); Influenza A PCR Negative (Negative); Influenza B PCR Negative (Negative); RSV PCR Negative (Negative)
[2022-10-14] MEDS: Normal Saline - Diluent 50 ML VIAL IJ (14:03)
[2022-10-14 14:07] LABS: Source Nasopharynx
[2022-10-14 14:12] VITALS: BP 156/54; PULSE 99; RESP 18; TEMP 37.1; O2SAT 97
[2022-10-14] MEDS: Pantoprazole 40 MG VIAL IVP (14:15)
[2022-10-14] MEDS: Sucralfate 1 GM TAB PO (14:18)
--- NOTE | 2022-10-14 15:16 | DI.VRAD_ITS ---
PROCEDURE INFORMATION: Exam: CTA Chest With Contrast Exam date and time: 10/14/2022 1:54 PM Age: 72 years old Clinical indication: Shortness of breath TECHNIQUE: Imaging protocol: Computed tomographic angiography of the chest with contrast. 3D rendering (Not supervised by radiologist): MIP and/or 3D reconstructed images were created by the technologist. COMPARISON: CR XR SHOULDER RT COMPLETE 2+V 03/12/2020 7:49 AM FINDINGS: Pulmonary arteries: No evidence of pulmonary embolus. Aorta: Mild calcifications of the thoracic aorta. Low-density line at the left lateral aspect of the ascending thoracic aorta on the coronal reconstructions appear to extend into the main pulmonary artery and is more likely motion artifact and is not a dissection. Lungs: Unremarkable. No consolidation. No masses. Pleural spaces: Unremarkable. No pneumothorax. No pleural effusion. Heart: Unremarkable. No cardiomegaly. No pericardial effusion. Lymph nodes: Unremarkable. No enlarged lymph nodes. Bones/joints: Mild degenerative changes in the thoracic spine. No suspicious lytic or blastic bone lesions. Soft tissues: Unremarkable. IMPRESSION: No evidence of pulmonary embolus or other acute findings. Dictated and Authenticated by: Inocente Azevedo MD. Ordering:VERONIKA Marin MD
--- NOTE | 2022-10-14 15:36 | NUR.NOTE ---
Nursing Note: Referral faxed to [facility] Surgery for GI bleed/ in 1 week.
[2022-10-14 16:44] VITALS: BP 139/54; PULSE 95; RESP 16; TEMP 37.3; O2SAT 97
[2022-10-14 16:50] VITALS: BP 136/56; PULSE 94; RESP 16; TEMP 37.2; O2SAT 96
[2022-10-14 16:59] VITALS: BP 144/63; PULSE 88; RESP 16; TEMP 37.3; O2SAT 96
[2022-10-14 17:32] VITALS: BP 150/58; PULSE 88; RESP 16; TEMP 36.8; O2SAT 98
== END 2022-10-14 17:45 | disposition home or self-care (01) ==
PROVIDERS: Emergency Provider Student in an Organized Health Care Education/Training Program; PCP Nurse Practitioner Family
DX: K92.2 Gastrointestinal hemorrhage, unspecified (principal); D64.9 Anemia, unspecified; I10 Essential (primary) hypertension; R00.2 Palpitations; Z79.82 Long term (current) use of aspirin; Z20.822 Contact with and (suspected) exposure to COVID-19
CPT/HCPCS: 36415; 71275; 80053; 83690; 86850; 86900; 86901; 86920; 87637; 93005; 93308; 96361; 96374; 99285; 84484; 85025; 85610; 85730; 93010; J3490; P9016

== ENCOUNTER 2022-10-18 03:32 | Outpatient (CLI) | payer MEDICARE, SELFPAY ==
[2022-10-18 12:29] LABS: HGB 8.1 g/dL (11.2-15.7); MCH 29.7 pg (27.0-33.0); MCHC 32.4 % (32.0-36.0); MCV 92 fL (80-95); Platelet Count 68 10^3/uL (130-400); RBC 2.73 10^6/uL (3.93-5.22); RDW 18.4 % (11.7-14.6); RDW-SD 58.1 fL
[2022-10-18 12:53] LABS: Total Iron Binding Capacity 348 ug/dL (250-450)
[2022-10-18 13:12] LABS: Ferritin 73 ng/mL (8-252)
[2022-10-18 13:35] LABS: Absolute Eosinophil Count 0.39 10^3/uL (0.0-0.7); Absolute Lymphocyte Count 0.39 10^3/uL (1.2-3.4); Absolute Monocyte Count 0.19 10^3/uL (0.1-0.8)
[2022-10-18 13:37] LABS: Diff Comment Manual Differential; Other Cells % 79
[2022-10-18 13:38] LABS: Anisocytosis 1+; Bands % 1; Polychromasia Present
== END 2022-10-18 03:33 | disposition home or self-care (01) ==
LOC: LOS 03:32
PROVIDERS: PCP Nurse Practitioner Family; Visit Provider Nurse Practitioner Family
DX: K92.2 Gastrointestinal hemorrhage, unspecified (principal)
CPT/HCPCS: 36415; 82728; 83550; 85025

== ENCOUNTER 2022-11-17 07:01 | Emergency (ER) | payer MEDICARE, SELFPAY ==
[2022-11-17] VITALS (49 sets, daily range): BP systolic 107–156; BP diastolic 33–85; PULSE 73–106; RESP 14–28; TEMP 36.6–36.9; O2SAT 95–100
--- NOTE | 2022-11-17 07:00 | RT.EKG_ITS ---
APPROVED REPORT Exam: Resting ECG Reason for Exam: Dyspnea Patient Location: E HR:95 bpm ECG Measurements Heart Rate 95 AXIS IA 143 P 63 QRSd 92 QRS 57 QT 358 T 17 QTc 450 Conclusion Sinus rhythm...normal P axis, V-rate 60- 99 Physician: no stemi, q wave in III is more significant than prior ekg
--- NOTE | 2022-11-17 07:19 | W.ED.GENAD ---
Discharge Plan Discharge Details Chief Complaint: GI Bleed Primary Care Provider: Dominique Damon ED Provider: Tomas Chairez Home Meds and New Rx's Prescriptions: No Action methotrexate sodium 2.5 mg tablet 15 mg PO QWEEK Patient Comments: Prescribed by Dr. Goodrich, [facility] [place] Rheumatology varicella-zoster [id number]-AS01B (PF) 50 mcg/0.5 mL suspension for reconstitution 0.5 ml IM ONCE Qty: 1 0RF Patient Comments: has not had Rx Instructions: 2 doses 2 months apart amlodipine 10 mg tablet 10 mg PO DAILY Qty: 90 4RF lansoprazole [Prevacid] 30 mg capsule,delayed release(DR/EC) 30 mg PO DAILY Qty: 90 4RF sertraline [Zoloft] 50 mg tablet 75 mg PO DAILY Qty: 145 4RF simvastatin 20 mg tablet 20 mg PO HS Qty: 90 4RF aspirin 325 MG tablet 325 mg PO DAILY ferrous sulfate 325 MG tablet 325 mg PO DAILY hydroxychloroquine [Plaquenil] 200 MG tablet 200 mg PO BID Qty: 180 calcium carbonate 500 MG tablet 500 mg PO DAILY Patient Comments: 05/09/16: 750mg PO daily. -BR triamcinolone acetonide 15 GM cream 1 gm Topical BID PRNQty: 80 Rx Instructions: apply a pea sized amount to the arms as needed acyclovir 200 MG capsule 200 mg PO QID PRNQty: 60 cholecalciferol (vitamin D3) 1,000 unit capsule 2,000 unit PO DAILY Qty: 90 lorazepam 0.5 mg tablet 0.5 mg PO DAILY PRN (Reason: anxiety) Qty: 20 0RF pantoprazole [Protonix] 40 mg tablet,delayed release (DR/EC) 40 mg PO DAILY Qty: 60 0RF famotidine 40 mg tablet 40 mg PO BID Qty: 90 0RF Medical Decision Making This is an extremely pleasant 72-year-old female with a past medical history new onset atrial fibrillation during chemotherapy, acute myelogenous leukemia, FLT-3 positive, 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 She is currently on Levaquin, fluconazole, and acyclovir secondary to being cytopenic. She has been receiving a few RBC transfusions over the last few weeks. She presents today for shortness of breath. She has noticed a slight increase in shortness of breath over the last few days. She has noticed a small amount of bright red blood per rectum occasionally. She is not on any anticoagulants or aspirin anymore. Secondary to her cytopenias she has not been able to have an EGD or colonoscopy. Last night she had a significant episode of diarrhea with bright red blood and clots in it. Since then she has been significantly more short of breath. She denies any chest pain. She denies any vomiting. She denies any hematemesis. No other complaints at this time. No other modifying factors. Physical exam demonstrates a pale appearing female, heart rate elevated, blood pressure stable. Will not perform digital rectal exam secondary to immunocompromise state. History is clearly sufficient in this scenario. Patient is on Protonix already, we will add these here through IV form as well as famotidine. We will check the patient's hemoglobin level. Most recent hemoglobin level was 2 days ago on 11/16 where she had a WBC of 0.43, hemoglobin of 6.5, and platelets of 13. Her absolute neutrophil count was 0.01. We will gently rehydrate as she also appears dehydrated. We will get a D-dimer out of concern for potential PE although this is less likely. EKG shows no STEMI, but she does have a Q wave in lead III as well as an inverted T wave in lead III. No broad terminal S wave in lead I. Patient will be signed out to my colleague Dr. Craig for follow-up on labs and imaging and final disposition. HPI General Date/Time Provider Initiated Documentation: 11/17/22 07:05. 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 She is currently on Levaquin, fluconazole, and acyclovir secondary to being cytopenic. She has been receiving a few RBC transfusions over the last few weeks. She presents today for shortness of breath. She has noticed a slight increase in shortness of breath over the last few days. She has noticed a small amount of bright red blood per rectum occasionally. She is not on any anticoagulants or aspirin anymore. Secondary to her cytopenias she has not been able to have an EGD or colonoscopy. Last night she had a significant episode of diarrhea with bright red blood and clots in it. Since then she has been significantly more short of breath. She denies any chest pain. She denies any vomiting. She denies any hematemesis. No other complaints at this time. No other modifying factors. Related Data Home Medications Medication Instructions Recorded Confirmed aspirin 325 mg tablet 325 mg PO DAILY 05/21/13 11/17/22 ferrous sulfate 325 mg (65 mg 325 mg PO DAILY 05/21/13 11/17/22 iron) tablet hydroxychloroquine 200 mg tablet 200 mg PO BID #180 tab-caps 06/12/13 11/17/22 (Plaquenil) calcium carbonate 500 mg calcium 500 mg PO DAILY 05/09/16 11/17/22 (1,250 mg) tablet acyclovir 200 mg capsule 200 mg PO QID PRN #60 tab-caps 12/18/17 11/17/22 triamcinolone acetonide 0.1 % 1 gm topical BID PRN #80 grams 12/18/17 11/17/22 topical cream cholecalciferol (vitamin D3) 25 2,000 unit PO DAILY #90 tab-caps 12/25/18 11/17/22 mcg (1,000 unit) capsule methotrexate sodium 2.5 mg tablet 15 mg PO QWEEK 12/25/18 11/17/22 varicella-zoster glycoE [id number]-AS01B 0.5 ml IM ONCE #1 ea 02/21/21 11/17/22 adj(PF) 50 mcg/0.5 mL IM susp, kit amlodipine 10 mg tablet 10 mg PO DAILY #90 tabs 04/05/22 11/17/22 lansoprazole 30 mg capsule,delayed 30 mg PO DAILY #90 caps 04/05/22 11/17/22 release (Prevacid) sertraline 50 mg tablet (Zoloft) 75 mg PO DAILY #145 tabs 04/05/22 11/17/22 simvastatin 20 mg tablet 20 mg PO HS #90 tabs 04/05/22 11/17/22 famotidine 40 mg tablet 40 mg PO BID #90 tabs 10/14/22 11/17/22 pantoprazole 40 mg tablet,delayed 40 mg PO DAILY #60 tabs 10/14/22 11/17/22 release (Protonix) lorazepam 0.5 mg tablet 0.5 mg PO DAILY PRN anxiety #20 11/16/22 11/17/22 tabs Previous Rx's Medication Instructions Recorded varicella-zoster glycoE vacc-AS01B 0.5 ml IM ONCE #1 ea 02/21/21 adj(PF) 50 mcg/0.5 mL IM susp, kit amlodipine 10 mg tablet 10 mg PO DAILY #90 tabs 04/05/22 lansoprazole 30 mg capsule,delayed 30 mg PO DAILY #90 caps 04/05/22 release (Prevacid) sertraline 50 mg tablet (Zoloft) 75 mg PO DAILY #145 tabs 04/05/22 simvastatin 20 mg tablet 20 mg PO HS #90 tabs 04/05/22 famotidine 40 mg tablet 40 mg PO BID #90 tabs 10/14/22 pantoprazole 40 mg tablet,delayed 40 mg PO DAILY #60 tabs 10/14/22 release (Protonix) lorazepam 0.5 mg tablet 0.5 mg PO DAILY PRN anxiety #20 11/16/22 tabs Allergies Allergy/AdvReac Type Severity Reaction Status Date / Time Sulfa (Sulfonamide Allergy Intermediate swelling, Verified 11/17/22 07:10 Antibiotics) rash General Stated Complaint: GI Bleed CHRISTOPHER: 3 Review of Systems All systems reviewed & are unremarkable except as noted in HPI and below PFSH All Active Problems Acute myeloid leukemia (Acute ~09/2022) Rheumatoid arthritis (Chronic) Followed by [facility] [place] Rheumatology, Dr. 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 Son No problems noted. Maternal Grandfather , at 52 Multiple sclerosis Heart disease Maternal Grandmother , at 56 of stroke Stroke Heart disease Hypertension Paternal Grandfather , at 74 Lung cancer Paternal Grandmother , at 85 Dementia Social History Smoking/Tobacco Use Status: Former Tobacco Use Tobacco: How many years used: 20 Second Hand Exposure: No Smoking risk assessment performed?: Yes Alcohol Intake: former Drug use: Never Substance use type: does not use Caregiver/Support person: No Household members: none Housing: house Number of Children: 2 number of grandchildren: 5 Communication Needs: None Do you need help understanding health information?: Never 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 Pets and animals: Yes Pets and animals: cat(s) Sexually active: No Do you think of yourself as: straight/heterosexual Current gender identity: female What is your relationship status?: How often do you talk on the phone with friends or family?: three or more times per week How often do you get together with friends or relatives?: twice per week How often do you attend yazidi or latter day services?: 1-3 times per year Do you belong to any clubs or organized social groups?: no Panel score (0-1 are the most socially isolated patients): 1 What type of physical activity do you participate in: walking Duration: 15-30 minutes/day Frequency: 3-4 times per week Milla/Yarsanism: Presybeterian Special milla needs: No Seatbelt use: always Helmet use: No Drive intox or ride w/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 3.ENT: Atraumatic external nose and ears. Moist MM. Neck: Symmetric, trachea midline, No thyromegaly. 4.CVS: +S1/S2, No murmurs or gallops. Peripheral pulses 2+ and equal in all extremities. Brisk capillary refill in all extremities. 5.RESP: Unlabored respiratory effort. Clear to auscultation bilaterally. No wheezes rales or rhonchi 6.GI: Soft, Nontender/Nondistended, No hepatosplenomegaly. No guarding or rebound. 7.MSK: Normocephalic/Atraumatic, Extremities w/o deformity or ttp No cyanosis or clubbing, Normal movement of all extremities 8.Skin: Quite pale appearing 9.Neuro: health insurance specialist II-XII grossly intact. Sensation grossly intact, no focal neurologic deficits. 10.Psych: (AAO) x3. Appropriate mood and affect Course Vital Signs Vital signs: Vital Signs Temperature 36.7 C 11/17/22 07:05 Pulse 106 H 11/17/22 07:05 Respiratory Rate 20 11/17/22 07:05 Blood Pressure 156/56 H 11/17/22 07:05 Pulse Oximetry 99 11/17/22 07:05 Temperature 36.7 C 11/17/22 07:05 Pulse 106 H 11/17/22 07:05 Respiratory Rate 20 11/17/22 07:05 Respiratory Effort Short of Breath 11/17/22 07:12 Blood Pressure 156/56 H 11/17/22 07:05 Blood Pressure Position Sitting 11/17/22 07:05 Pulse Oximetry 99 11/17/22 07:05 Oxygen Delivery Method Room Air 11/17/22 07:05 Oxygen Flow Rate 0 11/17/22 07:05
[2022-11-17] MEDS: Normal Saline 500 ML IV (07:23)
[2022-11-17 07:29] LABS: MCHC 35.2 % (32.0-36.0); MCV 82 fL (80-95); MPV 10.9 fL (8.0-11.0); RBC 2.21 10^6/uL (3.93-5.22); RDW 13.7 % (11.7-14.6)
[2022-11-17] MEDS: FAMOTIDINE 20 MG in Normal Saline 100 ML 400 MG IVPB (07:34)
[2022-11-17] MEDS: Pantoprazole 40 MG VIAL IVP (07:35)
[2022-11-17 07:43] LABS: ALT 19 U/L (14-59); AST 15 U/L (15-37); Albumin 3.1 g/dL (3.4-5.0); Alkaline Phosphatase 146 U/L (46-116); BUN 26 mg/dL (7-18); Bilirubin, Total 0.8 mg/dL (0.2-1.0); CREATININE 1.1 mg/dL (0.55-1.02); Calcium 8.4 mg/dL (8.5-10.1); Chloride 109 mmol/L (98-107); Estimated GFR 53.72 (mL/min/1.73m2); Glucose 129 mg/dL (74-106); Potassium 3.6 mmol/L (3.5-5.1); Sodium 141 mmol/L (136-145); Total Protein 5.6 g/dL (6.4-8.2)
[2022-11-17 07:49] LABS: Absolute Neutrophil Count 0.03 10^3/uL (1.2-6.7)
[2022-11-17 07:50] LABS: Absolute Lymphocyte Count 0.52 10^3/uL (1.2-3.4); HCT 18.2 % (36.0-46.0); HGB 6.4 g/dL (11.2-15.7); Platelet Count 13 10^3/uL (130-400); WBC 0.55 10^3/uL (4.4-10.8)
[2022-11-17 07:51] LABS: Diff Comment Manual Differential; RBC Morphology Normal
[2022-11-17 07:52] LABS: INR 1.1 (0.9-1.1); PTT Activated 21.4 sec (21.5-31.9); Prothrombin Time 10.7 sec (9.3-11.0)
[2022-11-17 08:08] LABS: D-Dimer 525 ng/mlFEU (<500)
--- NOTE | 2022-11-17 10:17 | ED.PROG_ITS ---
Date of service: 11/17/22 Time of Service: 10:17 Medical Decision Making Care was signed out by Dr. Chairez, please see his documentation regarding initial ED presentation and course. Plan at signout was to follow-up on labs and discussed case with [facility] transfer center for transfer. Labs reviewed and age-adjusted D-dimer normal. Patient remains anemic. She did receive 2 units of PRBCs yesterday. I spoke with the lab who notes patient does not require irradiated PRBCs given orders from heme-onc yesterday. Patient received 2 units of PRBCs now. 855 -- I have called [facility] transfer center and requested transfer. Awaiting callback. 1000-- I called [facility] transfer center again to request update in the note patient will likely be accepted ED to ED, transfer center attempting to identify accepting physician. 1110 --Dr. Sharpe called from [facility], discussed ED presentation and course, he will except the patient in transfer. Lab Data Lab results reviewed: Yes I reviewed the patient's lab results. Labs: Laboratory Tests Range/Units 11/17/22 11/17/22 11/17/22 07:11 07:11 07:11 WBC (4.4-10.8) 10^3/uL 0.55 L* RBC (3.93-5.22) 10^6/uL 2.21 L Hgb (11.2-15.7) g/dL 6.4 L* Hct (36.0-46.0) % 18.2 L* MCV (80-95) fL 82 MCH (27.0-33.0) pg 29.0 MCHC (32.0-36.0) % 35.2 RDW (11.7-14.6) % 13.7 Plt Count (130-400) 10^3/uL 13 L* MPV (8.0-11.0) fL 10.9 Immature Gran % 0.0 Neutrophils % 6.0 Lymphocytes % 94.0 Monocytes % 0.0 Eosinophils % 0.0 Basophils % 0.0 Nucleated RBC % (0.0-0.3) % 0.0 Absolute Neutrophils (1.2-6.7) 10^3/uL 0.03 L* Absolute Lymphocytes (1.2-3.4) 10^3/uL 0.52 L Absolute Monocytes (0.1-0.8) 10^3/uL 0.00 L Absolute Eosinophils (0.0-0.7) 10^3/uL 0.00 Absolute Basophils (0.0-0.2) 10^3/uL 0.00 RBC Morphology Normal PT (9.3-11.0) sec 10.7 INR (0.9-1.1) 1.1 APTT (21.5-31.9) sec 21.4 L D-Dimer (<500) ng/mlFEU 525 H Sodium (136-145) mmol/L 141 Potassium (3.5-5.1) mmol/L 3.6 Chloride (98-107) mmol/L 109 H Carbon Dioxide (21.0-32.0) mmol/L 23.0 Anion Gap (3-11) mmol/L 9.0 BUN (7-18) mg/dL 26 H Creatinine (0.55-1.02) mg/dL 1.1 H Est GFR (CKD-EPI 2020) (mL/min/1.73m2) 53.72 Glucose (74-106) mg/dL 129 H Calcium (8.5-10.1) mg/dL 8.4 L Total Bilirubin (0.2-1.0) mg/dL 0.8 AST (15-37) U/L 15 ALT (14-59) U/L 19 Alkaline Phosphatase (46-116) U/L 146 H Total Protein (6.4-8.2) g/dL 5.6 L Albumin (3.4-5.0) g/dL 3.1 L Patient ABO/Rh Antibody Screen Crossmatch Range/Units 11/17/22 07:11 WBC (4.4-10.8) 10^3/uL RBC (3.93-5.22) 10^6/uL Hgb (11.2-15.7) g/dL Hct (36.0-46.0) % MCV (80-95) fL MCH (27.0-33.0) pg MCHC (32.0-36.0) % RDW (11.7-14.6) % Plt Count (130-400) 10^3/uL MPV (8.0-11.0) fL Immature Gran % Neutrophils % Lymphocytes % Monocytes % Eosinophils % Basophils % Nucleated RBC % (0.0-0.3) % Absolute Neutrophils (1.2-6.7) 10^3/uL Absolute Lymphocytes (1.2-3.4) 10^3/uL Absolute Monocytes (0.1-0.8) 10^3/uL Absolute Eosinophils (0.0-0.7) 10^3/uL Absolute Basophils (0.0-0.2) 10^3/uL RBC Morphology PT (9.3-11.0) sec INR (0.9-1.1) APTT (21.5-31.9) sec D-Dimer (<500) ng/mlFEU Sodium (136-145) mmol/L Potassium (3.5-5.1) mmol/L Chloride (98-107) mmol/L Carbon Dioxide (21.0-32.0) mmol/L Anion Gap (3-11) mmol/L BUN (7-18) mg/dL Creatinine (0.55-1.02) mg/dL Est GFR (CKD-EPI 2020) (mL/min/1.73m2) Glucose (74-106) mg/dL Calcium (8.5-10.1) mg/dL Total Bilirubin (0.2-1.0) mg/dL AST (15-37) U/L ALT (14-59) U/L Alkaline Phosphatase (46-116) U/L Total Protein (6.4-8.2) g/dL Albumin (3.4-5.0) g/dL Patient ABO/Rh O Positive Antibody Screen NEGATIVE Crossmatch See Detail Critical Care Time Critical Care Time Critical Care Time: Yes Total Critical Care Time: 40 Attestation: I spent greater than 40 minutes addressing this patient's immediate life threats. Please see MDM section of note. This time was spent engaged in work directly related to the patient's care, exclusive of separate procedures, and failure to initiate these interventions would have likely resulted in clinically significant or life threatening deterioration in the patient's condition. Blood transfusion for severe anemia with active GI bleed. Sign Out Sign Out Data: Sign Out Comment: Neutropenic, cytopenic, bright red blood per rectum, follow-up on labs and imaging with recommended consult for oncology/hematology at [facility] Last updated by Tomas Chairez DO at 11/17/22 07:28 Discharge Plan Disposition Patient Disposition: Transfer-Acute Inpatient Care Specific Acute Inpt Facility: [facility] Discharge Details Clinical Impression: Acute GI bleeding, Anemia, Thrombocytopenia Primary Care Provider: Dominique Damon ED Provider: Milo Craig [place] Meds and New Rx's Prescriptions: No Action simvastatin 20 mg tablet 20 mg PO HS Qty: 90 4RF trazodone 50 mg tablet 50 mg PO DAILY PRN (Reason: insomnia) Qty: 90 3RF prochlorperazine maleate [Compazine] 10 mg tablet 10 mg PO Q6H PRN (Reason: nausea and vomiting) Qty: 90 1RF triamcinolone acetonide 15 GM cream 1 gm Topical BID PRNQty: 80 Rx Instructions: apply a pea sized amount to the arms as needed cholecalciferol (vitamin D3) 1,000 unit capsule 2,000 unit PO DAILY Qty: 90 lorazepam 0.5 mg tablet 0.5 mg PO DAILY PRN (Reason: anxiety) Qty: 20 0RF acyclovir 400 mg tablet 400 mg PO BID Qty: 30 0RF Rx Instructions: Per [facility] Hem/Onc 10/18/22 fluconazole 200 mg tablet 400 mg PO DAILY Qty: 30 0RF Rx Instructions: Per [facility] Hem/ONC 10/18/22 folic acid 1 mg tablet 1 mg PO DAILY Qty: 30 0RF Rx Instructions: Per [facility] HEM/ONC 10/18/22 levofloxacin 750 mg tablet 750 mg PO DAILY Qty: 30 0RF Rx Instructions: 10/18/22 Per [facility] Hem/Onc sertraline 100 mg tablet 100 mg PO DAILY Qty: 90 3RF gilteritinib 40 mg tablet 80 mg PO DAILY Rx Instructions: 12/01/22 Rx'd by Hem/Onc. -hb venetoclax 100 mg tablet 100 mg PO DAILY Rx Instructions: 12/01/22 Rx'd by Heme/Onc pantoprazole [Protonix] 40 mg tablet,delayed release (DR/EC) 40 mg PO DAILY Qty: 60 0RF Discharge Data Discharge Date/Time-TO BE ENTERED AT DEPARTURE: 11/17/22 11:40
== END 2022-11-17 11:40 | disposition short-term general hospital (02) ==
PROVIDERS: Student in an Organized Health Care Education/Training Program; Emergency Provider Student in an Organized Health Care Education/Training Program; PCP Nurse Practitioner Family
DX: D64.9 Anemia, unspecified (principal); D69.6 Thrombocytopenia, unspecified; K62.5 Hemorrhage of anus and rectum; R06.02 Shortness of breath; I48.91 Unspecified atrial fibrillation; Z79.82 Long term (current) use of aspirin; Z79.899 Other long term (current) drug therapy
CPT/HCPCS: 36415; 80053; 86850; 86900; 86901; 86920; 93005; 96365; 96375; 99291; 85025; 85379; 85610; 85730; 93010; P9016

== ENCOUNTER 2022-11-24 00:56 | Outpatient (RCR) | payer MEDICARE, SELFPAY ==
[2022-11-13 08:25] LABS: HCT 24.5 % (36.0-46.0); HGB 8.6 g/dL (11.2-15.7); MCH 29.6 pg (27.0-33.0); MCHC 35.1 % (32.0-36.0); MCV 84 fL (80-95); MPV 12.1 fL (8.0-11.0); RBC 2.91 10^6/uL (3.93-5.22); RDW 13.5 % (11.7-14.6); RDW-SD 40.8 fL
[2022-11-13 08:26] LABS: Absolute Lymphocyte Count 0.41 10^3/uL (1.2-3.4)
[2022-11-13 08:41] LABS: Diff Comment Manual Differential
[2022-11-13 08:42] LABS: RBC Morphology Normal
[2022-11-13 08:48] LABS: Absolute Neutrophil Count 0.02 10^3/uL (1.2-6.7); Platelet Count 19 10^3/uL (130-400)
[2022-11-13 08:49] LABS: WBC 0.43 10^3/uL (4.4-10.8)
[2022-11-14 13:13] VITALS: BP 137/70; PULSE 88; RESP 17; TEMP 35.7; O2SAT 99
[2022-11-14] MEDS: Normal Saline Flush 10 ML SYR IV (13:18)
[2022-11-14 13:32] VITALS: BP 120/70; PULSE 80; RESP 17; TEMP 36.4; O2SAT 100
[2022-11-16] VITALS (12 sets, daily range): BP systolic 104–142; BP diastolic 64–73; PULSE 74–92; RESP 16–18; TEMP 35.8–37.1; O2SAT 97–100
[2022-11-16 08:22] LABS: MCH 29.7 pg (27.0-33.0); MCHC 35.7 % (32.0-36.0); MCV 83 fL (80-95); MPV 10.1 fL (8.0-11.0); RBC 2.19 10^6/uL (3.93-5.22); RDW 13.1 % (11.7-14.6); RDW-SD 39.3 fL
[2022-11-16 08:28] LABS: ALT 22 U/L (14-59); AST 12 U/L (15-37); Albumin 3.4 g/dL (3.4-5.0); Alkaline Phosphatase 167 U/L (46-116); Anion Gap 12.4 mmol/L (3-11); BUN 25 mg/dL (7-18); Bilirubin, Total 0.7 mg/dL (0.2-1.0); CO2 22.6 mmol/L (21.0-32.0); CREATININE 1.1 mg/dL (0.55-1.02); Calcium 8.9 mg/dL (8.5-10.1); Chloride 106 mmol/L (98-107); Estimated GFR 53.72 (mL/min/1.73m2); Glucose 126 mg/dL (74-106); Potassium 3.5 mmol/L (3.5-5.1); Sodium 141 mmol/L (136-145); Total Protein 6.4 g/dL (6.4-8.2)
[2022-11-16 08:43] LABS: Absolute Lymphocyte Count 0.42 10^3/uL (1.2-3.4)
[2022-11-16 08:45] LABS: Diff Comment Manual Differential; Microcytosis 1+
[2022-11-16 08:48] LABS: Platelet Count 13 10^3/uL (130-400)
[2022-11-16 08:49] LABS: HGB 6.5 g/dL (11.2-15.7); WBC 0.43 10^3/uL (4.4-10.8)
[2022-11-16 08:50] LABS: HCT 18.2 % (36.0-46.0)
[2022-11-16 08:51] LABS: Absolute Neutrophil Count 0.01 10^3/uL (1.2-6.7)
[2022-11-16] MEDS: Normal Saline Flush 10 ML SYR IV (14:02)
[2022-11-23 08:17] LABS: HCT 26.7 % (36.0-46.0); HGB 9.2 g/dL (11.2-15.7); MCH 29.5 pg (27.0-33.0); MCHC 34.5 % (32.0-36.0); MCV 86 fL (80-95); MPV 9.8 fL (8.0-11.0); RBC 3.12 10^6/uL (3.93-5.22); RDW 14.2 % (11.7-14.6); RDW-SD 44.1 fL
[2022-11-23] MEDS: Normal Saline Flush 10 ML SYR IV (08:33)
[2022-11-23 08:57] LABS: Absolute Lymphocyte Count 0.32 10^3/uL (1.2-3.4); Absolute Monocyte Count 0.09 10^3/uL (0.1-0.8); Absolute Neutrophil Count 1.01 10^3/uL (1.2-6.7)
[2022-11-23 08:58] LABS: Absolute Basophil Count 0.01 10^3/uL (0.0-0.2); Absolute Eosinophil Count 0.01 10^3/uL (0.0-0.7); Metamyelocytes % 1
[2022-11-23 09:00] LABS: Platelet Count 18 10^3/uL (130-400); WBC 1.47 10^3/uL (4.4-10.8)
[2022-11-24 09:24] VITALS: BP 128/65; PULSE 80; RESP 17; TEMP 37.1; O2SAT 98
[2022-11-24 09:47] VITALS: BP 127/63; PULSE 82; RESP 17; TEMP 37; O2SAT 98
== END 2022-11-26 23:59 | disposition home or self-care (01) ==
LOC: INF 00:56
PROVIDERS: Internal Medicine Hematology & Oncology; PCP Nurse Practitioner Family; Visit Provider Internal Medicine Hematology & Oncology
DX: C92.00 Acute myeloblastic leukemia, not having achieved remission (principal)
CPT/HCPCS: 36415; 36430; 80053; 86850; 86900; 86901; 86920; 85025; P9016; P9035

== ENCOUNTER 2022-12-26 03:19 | Outpatient (RCR) | payer MEDICARE, SELFPAY ==
[2022-11-27 00:02] VITALS: BP 127/63; PULSE 82; RESP 17; TEMP 37
[2022-11-27 08:42] LABS: Abs Immature Grans 0.07 10^3/uL (0.0-0.06); HCT 26.4 % (36.0-46.0); HGB 8.9 g/dL (11.2-15.7); MCH 29.8 pg (27.0-33.0); MCHC 33.7 % (32.0-36.0); MCV 88 fL (80-95); RBC 2.99 10^6/uL (3.93-5.22); RDW 13.6 % (11.7-14.6); RDW-SD 42.6 fL
[2022-11-27 09:02] LABS: Platelet Count 58 10^3/uL (130-400)
[2022-11-27 09:03] LABS: Absolute Lymphocyte Count 0.44 10^3/uL (1.2-3.4); Absolute Monocyte Count 0.08 10^3/uL (0.1-0.8); Absolute Neutrophil Count 0.77 10^3/uL (1.2-6.7); Bands % 1; Diff Comment Manual Differential; Metamyelocytes % 4; Myelocytes % 2; Polychromasia Present
[2022-11-27 09:08] LABS: WBC 1.37 10^3/uL (4.4-10.8)
[2022-11-27] MEDS: Normal Saline Flush 10 ML SYR IVP (09:41)
[2022-11-30 08:38] LABS: Abs Immature Grans 0.06 10^3/uL (0.0-0.06); Absolute Basophil Count 0.02 10^3/uL (0.0-0.2); Absolute Monocyte Count 0.31 10^3/uL (0.1-0.8); Absolute Neutrophil Count 1.83 10^3/uL (1.2-6.7); Basophils % 0.8; HCT 27.5 % (36.0-46.0); HGB 9.3 g/dL (11.2-15.7); Immature Grans % 2.3; Lymphocytes % 15.3; MCH 30.7 pg (27.0-33.0); MCHC 33.8 % (32.0-36.0); MCV 91 fL (80-95); Monocytes % 11.8; Neutrophils % 69.8; Platelet Count 167 10^3/uL (130-400); RBC 3.03 10^6/uL (3.93-5.22); RDW 14.9 % (11.7-14.6); RDW-SD 43.3 fL; WBC 2.62 10^3/uL (4.4-10.8)
[2022-12-11] MEDS: Normal Saline Flush 10 ML SYR IVP (07:35)
[2022-12-11 07:42] LABS: Abs Immature Grans 0.04 10^3/uL (0.0-0.06); Absolute Basophil Count 0.02 10^3/uL (0.0-0.2); Absolute Eosinophil Count 0.03 10^3/uL (0.0-0.7); Absolute Lymphocyte Count 0.58 10^3/uL (1.2-3.4); Absolute Monocyte Count 0.61 10^3/uL (0.1-0.8); Absolute Neutrophil Count 3.46 10^3/uL (1.2-6.7); Basophils % 0.4; Eosinophils % 0.6; HCT 33.1 % (36.0-46.0); HGB 10.5 g/dL (11.2-15.7); Immature Grans % 0.8; Lymphocytes % 12.2; MCH 29.7 pg (27.0-33.0); MCHC 31.7 % (32.0-36.0); MCV 94 fL (80-95); MPV 9.6 fL (8.0-11.0); Monocytes % 12.9; Neutrophils % 73.1; Platelet Count 464 10^3/uL (130-400); RBC 3.53 10^6/uL (3.93-5.22); RDW 16.5 % (11.7-14.6); RDW-SD 54.5 fL; WBC 4.74 10^3/uL (4.4-10.8)
[2022-12-11 08:09] LABS: ALT 16 U/L (14-59); AST 11 U/L (15-37); Albumin 3.6 g/dL (3.4-5.0); Alkaline Phosphatase 143 U/L (46-116); Anion Gap 8.5 mmol/L (3-11); BUN 9 mg/dL (7-18); Bilirubin, Total 0.4 mg/dL (0.2-1.0); CO2 26.5 mmol/L (21.0-32.0); Calcium 9.6 mg/dL (8.5-10.1); Chloride 104 mmol/L (98-107); Estimated GFR 60.23 (mL/min/1.73m2); Glucose 101 mg/dL (74-106); Potassium 4.1 mmol/L (3.5-5.1); Sodium 139 mmol/L (136-145); Total Protein 7.1 g/dL (6.4-8.2)
[2022-12-18 08:06] LABS: Abs Immature Grans 0.04 10^3/uL (0.0-0.06); Absolute Basophil Count 0.01 10^3/uL (0.0-0.2); Absolute Eosinophil Count 0.09 10^3/uL (0.0-0.7); Absolute Lymphocyte Count 0.79 10^3/uL (1.2-3.4); Absolute Monocyte Count 0.45 10^3/uL (0.1-0.8); Absolute Neutrophil Count 4.72 10^3/uL (1.2-6.7); Basophils % 0.2; Eosinophils % 1.5; HCT 34.6 % (36.0-46.0); HGB 10.9 g/dL (11.2-15.7); Immature Grans % 0.7; MCH 29.5 pg (27.0-33.0); MCHC 31.5 % (32.0-36.0); MCV 94 fL (80-95); MPV 9.9 fL (8.0-11.0); Monocytes % 7.4; Neutrophils % 77.2; Platelet Count 340 10^3/uL (130-400); RDW 16.1 % (11.7-14.6); RDW-SD 54.4 fL
[2022-12-18] MEDS: Normal Saline Flush 10 ML SYR IVP (08:20)
[2022-12-18] MEDS: Heparin 500 UNITS/5 ML SYRINGE IV (08:23)
[2022-12-26] MEDS: Normal Saline Flush 10 ML SYR IVP ×2 (08:22→08:43)
[2022-12-26 08:34] LABS: Abs Immature Grans 0.01 10^3/uL (0.0-0.06); Absolute Basophil Count 0.01 10^3/uL (0.0-0.2); Absolute Lymphocyte Count 0.63 10^3/uL (1.2-3.4); Absolute Monocyte Count 0.46 10^3/uL (0.1-0.8); Absolute Neutrophil Count 2.85 10^3/uL (1.2-6.7); Basophils % 0.2; Eosinophils % 2.5; HCT 35.3 % (36.0-46.0); HGB 11.3 g/dL (11.2-15.7); Immature Grans % 0.2; Lymphocytes % 15.5; MCH 29.7 pg (27.0-33.0); MCV 93 fL (80-95); MPV 9.7 fL (8.0-11.0); Monocytes % 11.3; Neutrophils % 70.3; Platelet Count 242 10^3/uL (130-400); RDW-SD 54.8 fL; WBC 4.06 10^3/uL (4.4-10.8)
[2022-12-26] MEDS: Heparin 500 UNITS/5 ML SYRINGE IV (08:43)
== END 2022-12-27 23:59 | disposition home or self-care (01) ==
LOC: INF 03:19
PROVIDERS: Internal Medicine Hematology & Oncology; PCP Nurse Practitioner Family; Visit Provider Internal Medicine Hematology & Oncology
DX: C92.00 Acute myeloblastic leukemia, not having achieved remission (principal); Z45.2 Encounter for adjustment and management of vascular access device
CPT/HCPCS: 36415; 36591; 80053; 86900; 86901; 85025

== ENCOUNTER 2023-01-25 08:05 | Outpatient (RCR) | payer MEDICARE, SELFPAY ==
[2022-12-28 00:03] VITALS: BP 127/63; PULSE 82; RESP 17; TEMP 37
[2023-01-01] MEDS: Heparin 500 UNITS/5 ML SYRINGE IV (08:23)
[2023-01-01] MEDS: Normal Saline Flush 10 ML SYR IVP (08:23)
[2023-01-01 08:33] LABS: Abs Immature Grans 0.01 10^3/uL (0.0-0.06); Absolute Basophil Count 0.01 10^3/uL (0.0-0.2); Absolute Eosinophil Count 0.09 10^3/uL (0.0-0.7); Absolute Lymphocyte Count 0.63 10^3/uL (1.2-3.4); Absolute Monocyte Count 0.34 10^3/uL (0.1-0.8); Absolute Neutrophil Count 2.61 10^3/uL (1.2-6.7); Basophils % 0.3; Eosinophils % 2.4; HCT 35.5 % (36.0-46.0); HGB 11.5 g/dL (11.2-15.7); Immature Grans % 0.3; Lymphocytes % 17.1; MCH 29.7 pg (27.0-33.0); MCHC 32.4 % (32.0-36.0); MCV 92 fL (80-95); MPV 9.6 fL (8.0-11.0); Monocytes % 9.2; Neutrophils % 70.7; Platelet Count 159 10^3/uL (130-400); RBC 3.87 10^6/uL (3.93-5.22); RDW 15.7 % (11.7-14.6); RDW-SD 52.7 fL; WBC 3.69 10^3/uL (4.4-10.8)
[2023-01-08 08:27] LABS: Abs Immature Grans 0.01 10^3/uL (0.0-0.06); Absolute Eosinophil Count 0.22 10^3/uL (0.0-0.7); Absolute Lymphocyte Count 0.59 10^3/uL (1.2-3.4); Absolute Monocyte Count 0.03 10^3/uL (0.1-0.8); Absolute Neutrophil Count 2.33 10^3/uL (1.2-6.7); Eosinophils % 6.9; HCT 31.4 % (36.0-46.0); HGB 10.5 g/dL (11.2-15.7); Immature Grans % 0.3; Lymphocytes % 18.6; MCH 30.4 pg (27.0-33.0); MCHC 33.4 % (32.0-36.0); MCV 91 fL (80-95); MPV 11.6 fL (8.0-11.0); Monocytes % 0.9; Neutrophils % 73.3; RBC 3.45 10^6/uL (3.93-5.22); RDW 15.7 % (11.7-14.6); RDW-SD 51.9 fL; WBC 3.18 10^3/uL (4.4-10.8)
[2023-01-08] MEDS: Normal Saline Flush 10 ML SYR IVP (08:42)
[2023-01-08 08:48] LABS: ALT 31 U/L (14-59); AST 20 U/L (15-37); Albumin 3.8 g/dL (3.4-5.0); Alkaline Phosphatase 117 U/L (46-116); Anion Gap 7.7 mmol/L (3-11); BUN 11 mg/dL (7-18); Bilirubin, Total 0.6 mg/dL (0.2-1.0); CO2 26.3 mmol/L (21.0-32.0); CREATININE 0.9 mg/dL (0.55-1.02); Calcium 9.1 mg/dL (8.5-10.1); Chloride 104 mmol/L (98-107); Estimated GFR 68.35 (mL/min/1.73m2); Glucose 107 mg/dL (74-106); Platelet Count 42 10^3/uL (130-400); Potassium 3.9 mmol/L (3.5-5.1); Sodium 138 mmol/L (136-145); Total Protein 7.3 g/dL (6.4-8.2)
[2023-01-08 08:49] LABS: Diff Comment Diff Reviewed; RBC Morphology Normal
[2023-01-11] MEDS: Normal Saline Flush 10 ML SYR IVP (07:50)
[2023-01-11 09:34] LABS: HCT 27.8 % (36.0-46.0); HGB 9.3 g/dL (11.2-15.7); MCH 30.4 pg (27.0-33.0); MCHC 33.5 % (32.0-36.0); MCV 91 fL (80-95); MPV 9.6 fL (8.0-11.0); RBC 3.06 10^6/uL (3.93-5.22); RDW 15.5 % (11.7-14.6); RDW-SD 51.3 fL; WBC 2.28 10^3/uL (4.4-10.8)
[2023-01-11 09:39] LABS: Absolute Eosinophil Count 0.21 10^3/uL (0.0-0.7); Absolute Lymphocyte Count 0.41 10^3/uL (1.2-3.4); Absolute Neutrophil Count 1.66 10^3/uL (1.2-6.7); Diff Comment Manual Differential; RBC Morphology Normal
[2023-01-11 09:40] LABS: Platelet Count 30 10^3/uL (130-400)
[2023-01-15] VITALS (10 sets, daily range): BP systolic 118–154; BP diastolic 61–79; PULSE 77–98; RESP 16–18; TEMP 36–36.7; O2SAT 97–100
[2023-01-15 08:45] LABS: Absolute Eosinophil Count 0.13 10^3/uL (0.0-0.7); Absolute Lymphocyte Count 0.43 10^3/uL (1.2-3.4); Absolute Monocyte Count 0.01 10^3/uL (0.1-0.8); Eosinophils % 17.1; Lymphocytes % 56.6; MCH 29.6 pg (27.0-33.0); MCHC 33.3 % (32.0-36.0); MCV 89 fL (80-95); MPV 10.4 fL (8.0-11.0); Monocytes % 1.3; RBC 2.16 10^6/uL (3.93-5.22)
[2023-01-15 08:53] LABS: WBC 0.76 10^3/uL (4.4-10.8)
[2023-01-15 08:54] LABS: HGB 6.4 g/dL (11.2-15.7)
[2023-01-15 08:55] LABS: Absolute Neutrophil Count 0.19 10^3/uL (1.2-6.7); HCT 19.2 % (36.0-46.0)
[2023-01-15 09:11] LABS: Diff Comment Agrees w/ Instrument; Platelet Count 26 10^3/uL (130-400)
[2023-01-15 09:12] LABS: Hypochromasia 3+
[2023-01-15] MEDS: Normal Saline Flush 10 ML SYR IVP (13:46)
[2023-01-18] MEDS: Normal Saline Flush 10 ML SYR IVP (08:15)
[2023-01-18 08:19] LABS: Absolute Eosinophil Count 0.06 10^3/uL (0.0-0.7); Absolute Monocyte Count 0.01 10^3/uL (0.1-0.8); HCT 21.1 % (36.0-46.0); HGB 7.3 g/dL (11.2-15.7); MCH 29.4 pg (27.0-33.0); MCHC 34.6 % (32.0-36.0); MCV 85 fL (80-95); MPV 11.6 fL (8.0-11.0); RBC 2.48 10^6/uL (3.93-5.22); RDW-SD 46.1 fL
[2023-01-18 08:33] LABS: Absolute Lymphocyte Count 0.41 10^3/uL (1.2-3.4); Atypical Lymphocytes % 6; Diff Comment Manual Differential; RBC Morphology Normal
[2023-01-18 08:36] LABS: Absolute Neutrophil Count 0.09 10^3/uL (1.2-6.7); Platelet Count 19 10^3/uL (130-400); WBC 0.57 10^3/uL (4.4-10.8)
[2023-01-18 10:54] VITALS: BP 149/75; PULSE 80; RESP 17; TEMP 36.4; O2SAT 100
[2023-01-18 11:18] VITALS: BP 135/78; PULSE 82; RESP 17; TEMP 36.4; O2SAT 100
[2023-01-18 11:33] VITALS: BP 139/72; PULSE 83; RESP 17; TEMP 36.4; O2SAT 99
[2023-01-18 11:35] VITALS: BP 138/76; PULSE 81; RESP 17; TEMP 36.1; O2SAT 99
[2023-01-18 11:50] VITALS: BP 145/76; PULSE 81; RESP 18; TEMP 36.3; O2SAT 99
[2023-01-18 13:01] VITALS: BP 167/66; PULSE 86; RESP 18; TEMP 36.6; O2SAT 99
[2023-01-19] MEDS: Normal Saline Flush 10 ML SYR IVP (08:30)
[2023-01-19 08:55] VITALS: BP 145/73; PULSE 76; RESP 17; TEMP 36.6; O2SAT 99
[2023-01-22] MEDS: Normal Saline Flush 10 ML SYR IVP ×2 (07:33→08:29)
[2023-01-22 07:37] LABS: Absolute Eosinophil Count 0.06 10^3/uL (0.0-0.7); HCT 23.5 % (36.0-46.0); MCH 29.4 pg (27.0-33.0); MCV 86 fL (80-95); MPV 9.2 fL (8.0-11.0); RBC 2.72 10^6/uL (3.93-5.22); RDW 14.7 % (11.7-14.6); RDW-SD 45.7 fL
[2023-01-22 08:05] LABS: Diff Comment Manual Differential; RBC Morphology Normal
[2023-01-22 08:06] LABS: Absolute Lymphocyte Count 0.55 10^3/uL (1.2-3.4); Absolute Monocyte Count 0.02 10^3/uL (0.1-0.8); Atypical Lymphocytes % 10
[2023-01-22 08:07] LABS: Platelet Count 34 10^3/uL (130-400)
[2023-01-22 08:19] LABS: WBC 0.79 10^3/uL (4.4-10.8)
[2023-01-22 08:20] LABS: Absolute Neutrophil Count 0.16 10^3/uL (1.2-6.7)
[2023-01-25] VITALS (10 sets, daily range): BP systolic 122–162; BP diastolic 53–81; PULSE 67–84; RESP 16–18; TEMP 36–37.1; O2SAT 98–100
[2023-01-25] MEDS: Normal Saline Flush 10 ML SYR IVP (08:01)
[2023-01-25 08:12] LABS: Absolute Eosinophil Count 0.01 10^3/uL (0.0-0.7); Absolute Lymphocyte Count 0.45 10^3/uL (1.2-3.4); Absolute Monocyte Count 0.01 10^3/uL (0.1-0.8); Eosinophils % 1.7; HCT 21.5 % (36.0-46.0); HGB 7.2 g/dL (11.2-15.7); Lymphocytes % 76.3; MCH 29.6 pg (27.0-33.0); MCHC 33.5 % (32.0-36.0); MCV 89 fL (80-95); MPV 10.1 fL (8.0-11.0); Monocytes % 1.7; Neutrophils % 20.3; Platelet Count 53 10^3/uL (130-400); RBC 2.43 10^6/uL (3.93-5.22); RDW 14.7 % (11.7-14.6); RDW-SD 45.9 fL
[2023-01-25 08:42] LABS: WBC 0.59 10^3/uL (4.4-10.8)
[2023-01-25 08:43] LABS: Absolute Neutrophil Count 0.12 10^3/uL (1.2-6.7)
[2023-01-25 08:55] LABS: Diff Comment Agrees w/ Instrument; RBC Morphology Normal
== END 2023-01-26 23:59 | disposition home or self-care (01) ==
LOC: INF 08:05
PROVIDERS: Internal Medicine Hematology & Oncology; PCP Nurse Practitioner Family; Visit Provider Internal Medicine Hematology & Oncology
DX: C92.01 Acute myeloblastic leukemia, in remission (principal); C92.00 Acute myeloblastic leukemia, not having achieved remission; Z45.2 Encounter for adjustment and management of vascular access device
CPT/HCPCS: 36430; 36591; 80053; 86850; 86900; 86901; 86920; 86945; P9073; 85025; 86644; P9016; P9035

== ENCOUNTER 2023-02-26 01:52 | Outpatient (RCR) | payer MEDICARE, SELFPAY ==
[2023-01-27 00:02] VITALS: BP 147/65; PULSE 84; RESP 18; TEMP 36
[2023-01-29 08:21] LABS: HCT 30.6 % (36.0-46.0); HGB 10.4 g/dL (11.2-15.7); MCH 30.1 pg (27.0-33.0); MCV 89 fL (80-95); MPV 10.9 fL (8.0-11.0); Platelet Count 100 10^3/uL (130-400); RBC 3.45 10^6/uL (3.93-5.22); RDW 15.2 % (11.7-14.6); RDW-SD 45.1 fL
[2023-01-29 08:54] LABS: WBC 0.49 10^3/uL (4.4-10.8)
[2023-01-29 09:02] LABS: Diff Comment Manual Differential
[2023-01-29 09:07] LABS: Absolute Eosinophil Count 0.02 10^3/uL (0.0-0.7); Absolute Lymphocyte Count 0.43 10^3/uL (1.2-3.4); Atypical Lymphocytes % 6
[2023-01-29 09:18] LABS: Absolute Neutrophil Count 0.04 10^3/uL (1.2-6.7); RBC Morphology Normal
[2023-02-01] MEDS: Normal Saline Flush 10 ML SYR IVP (08:07)
[2023-02-01 08:14] LABS: Absolute Monocyte Count 0.01 10^3/uL (0.1-0.8); HCT 29.1 % (36.0-46.0); HGB 10.1 g/dL (11.2-15.7); MCH 30.7 pg (27.0-33.0); MCHC 34.7 % (32.0-36.0); MCV 88 fL (80-95); MPV 9.4 fL (8.0-11.0); Platelet Count 118 10^3/uL (130-400); RBC 3.29 10^6/uL (3.93-5.22); RDW 15.4 % (11.7-14.6); RDW-SD 46.1 fL
[2023-02-01 08:29] LABS: ALT 25 U/L (14-59); AST 15 U/L (15-37); Albumin 3.5 g/dL (3.4-5.0); Alkaline Phosphatase 109 U/L (46-116); Anion Gap 9.3 mmol/L (3-11); BUN 13 mg/dL (7-18); Bilirubin, Total 0.6 mg/dL (0.2-1.0); CO2 26.7 mmol/L (21.0-32.0); CREATININE 1.1 mg/dL (0.55-1.02); Calcium 8.6 mg/dL (8.5-10.1); Chloride 107 mmol/L (98-107); Estimated GFR 53.72 (mL/min/1.73m2); Glucose 98 mg/dL (74-106); Potassium 3.9 mmol/L (3.5-5.1); Sodium 143 mmol/L (136-145); Total Protein 6.7 g/dL (6.4-8.2)
[2023-02-01 09:05] LABS: Absolute Lymphocyte Count 0.33 10^3/uL (1.2-3.4); Atypical Lymphocytes % 4; Diff Comment Manual Differential; RBC Morphology Normal
[2023-02-01 09:09] LABS: WBC 0.43 10^3/uL (4.4-10.8)
[2023-02-01 09:10] LABS: Absolute Neutrophil Count 0.09 10^3/uL (1.2-6.7)
[2023-02-12 07:45] LABS: Absolute Eosinophil Count 0.04 10^3/uL (0.0-0.7); Absolute Lymphocyte Count 0.39 10^3/uL (1.2-3.4); Absolute Monocyte Count 0.07 10^3/uL (0.1-0.8); Eosinophils % 2.7; HCT 24.1 % (36.0-46.0); HGB 8.2 g/dL (11.2-15.7); MCH 31.1 pg (27.0-33.0); MCV 91 fL (80-95); Monocytes % 4.7; Neutrophils % 66.6; RBC 2.64 10^6/uL (3.93-5.22); RDW 16.9 % (11.7-14.6); RDW-SD 52.5 fL
[2023-02-12] MEDS: Normal Saline Flush 10 ML SYR IVP (07:57)
[2023-02-12] MEDS: Heparin 500 UNITS/5 ML SYRINGE IV (07:58)
[2023-02-12 08:08] LABS: Anisocytosis 1+; Diff Comment Agrees w/ Instrument; Platelet Count 87 10^3/uL (130-400); Polychromasia Present
[2023-02-15] MEDS: Normal Saline Flush 10 ML SYR IVP (12:43)
[2023-02-15 12:45] LABS: Abs Immature Grans 0.01 10^3/uL (0.0-0.06); Absolute Eosinophil Count 0.04 10^3/uL (0.0-0.7); Absolute Lymphocyte Count 0.44 10^3/uL (1.2-3.4); Absolute Monocyte Count 0.09 10^3/uL (0.1-0.8); Absolute Neutrophil Count 1.05 10^3/uL (1.2-6.7); Eosinophils % 2.5; HGB 7.4 g/dL (11.2-15.7); Immature Grans % 0.6; MCH 31.1 pg (27.0-33.0); MCHC 33.6 % (32.0-36.0); MCV 92 fL (80-95); MPV 10.6 fL (8.0-11.0); Monocytes % 5.5; Neutrophils % 64.4; Platelet Count 69 10^3/uL (130-400); RBC 2.38 10^6/uL (3.93-5.22); RDW 17.7 % (11.7-14.6); RDW-SD 57.3 fL
[2023-02-15 13:29] LABS: Anisocytosis 1+; Diff Comment PLT Morph Reviewed; Polychromasia Present
[2023-02-15 13:33] LABS: WBC 1.63 10^3/uL (4.4-10.8)
[2023-02-16] VITALS (11 sets, daily range): BP systolic 138–170; BP diastolic 69–84; PULSE 74–90; RESP 16–17; TEMP 36–37.1; O2SAT 97–100
[2023-02-16] MEDS: Normal Saline Flush 10 ML SYR IVP (10:14)
[2023-02-19 08:11] LABS: Abs Immature Grans 0.01 10^3/uL (0.0-0.06); Absolute Eosinophil Count 0.05 10^3/uL (0.0-0.7); Absolute Lymphocyte Count 0.43 10^3/uL (1.2-3.4); Absolute Monocyte Count 0.13 10^3/uL (0.1-0.8); Absolute Neutrophil Count 1.36 10^3/uL (1.2-6.7); Eosinophils % 2.5; HCT 30.7 % (36.0-46.0); HGB 10.4 g/dL (11.2-15.7); Immature Grans % 0.5; Lymphocytes % 21.7; MCH 30.4 pg (27.0-33.0); MCHC 33.9 % (32.0-36.0); MCV 90 fL (80-95); MPV 9.9 fL (8.0-11.0); Monocytes % 6.6; Neutrophils % 68.7; RBC 3.42 10^6/uL (3.93-5.22); RDW 17.3 % (11.7-14.6); RDW-SD 53.3 fL
[2023-02-19 08:51] LABS: WBC 1.98 10^3/uL (4.4-10.8)
[2023-02-19 08:52] LABS: Diff Comment Diff Reviewed; Platelet Count 61 10^3/uL (130-400); RBC Morphology Normal
[2023-02-19] MEDS: Normal Saline Flush 10 ML SYR IVP (09:00)
[2023-02-22 08:19] LABS: Abs Immature Grans 0.01 10^3/uL (0.0-0.06); Absolute Basophil Count 0.01 10^3/uL (0.0-0.2); Absolute Eosinophil Count 0.07 10^3/uL (0.0-0.7); Absolute Monocyte Count 0.19 10^3/uL (0.1-0.8); Absolute Neutrophil Count 1.75 10^3/uL (1.2-6.7); Basophils % 0.4; Eosinophils % 2.9; HCT 31.3 % (36.0-46.0); HGB 10.6 g/dL (11.2-15.7); Immature Grans % 0.4; Lymphocytes % 16.5; MCH 30.8 pg (27.0-33.0); MCHC 33.9 % (32.0-36.0); MCV 91 fL (80-95); MPV 10.2 fL (8.0-11.0); Monocytes % 7.8; RBC 3.44 10^6/uL (3.93-5.22); RDW 17.3 % (11.7-14.6); RDW-SD 54.2 fL; WBC 2.43 10^3/uL (4.4-10.8)
[2023-02-22 08:55] LABS: ALT 13 U/L (14-59); AST 12 U/L (15-37); Albumin 3.7 g/dL (3.4-5.0); Alkaline Phosphatase 93 U/L (46-116); Anion Gap 10.1 mmol/L (3-11); BUN 17 mg/dL (7-18); Bilirubin, Total 0.6 mg/dL (0.2-1.0); CO2 24.9 mmol/L (21.0-32.0); CREATININE 1.1 mg/dL (0.55-1.02); Calcium 9.4 mg/dL (8.5-10.1); Chloride 102 mmol/L (98-107); Estimated GFR 53.72 (mL/min/1.73m2); Glucose 121 mg/dL (74-106); Sodium 137 mmol/L (136-145); Total Protein 7.3 g/dL (6.4-8.2)
[2023-02-22 09:02] LABS: Diff Comment Diff Reviewed; Polychromasia Present
[2023-02-22 09:03] LABS: Platelet Count 58 10^3/uL (130-400)
[2023-02-22] MEDS: Heparin 500 UNITS/5 ML SYRINGE IV (09:17)
[2023-02-22] MEDS: Normal Saline Flush 10 ML SYR IVP (09:17)
[2023-02-26] MEDS: Normal Saline Flush 10 ML SYR IVP (08:08)
[2023-02-26] MEDS: Heparin 500 UNITS/5 ML SYRINGE IV (08:08)
[2023-02-26 08:25] LABS: Abs Immature Grans 0.01 10^3/uL (0.0-0.06); Absolute Basophil Count 0.01 10^3/uL (0.0-0.2); Absolute Lymphocyte Count 0.52 10^3/uL (1.2-3.4); Absolute Monocyte Count 0.32 10^3/uL (0.1-0.8); Absolute Neutrophil Count 0.99 10^3/uL (1.2-6.7); Basophils % 0.5; Eosinophils % 5.1; HCT 29.2 % (36.0-46.0); Immature Grans % 0.5; Lymphocytes % 26.7; MCH 31.3 pg (27.0-33.0); MCHC 34.2 % (32.0-36.0); MCV 91 fL (80-95); Monocytes % 16.4; Neutrophils % 50.8; RDW 17.9 % (11.7-14.6); RDW-SD 57.6 fL
[2023-02-26 09:16] LABS: WBC 1.95 10^3/uL (4.4-10.8)
[2023-02-26 09:17] LABS: MPV 10.7 fL (8.0-11.0); Platelet Count 58 10^3/uL (130-400)
[2023-02-26 09:18] LABS: Diff Comment Diff Reviewed; Polychromasia Present
== END 2023-02-26 23:59 | disposition home or self-care (01) ==
LOC: INF 01:52
PROVIDERS: Internal Medicine Hematology & Oncology; PCP Nurse Practitioner Family; Visit Provider Internal Medicine Hematology & Oncology
DX: C92.00 Acute myeloblastic leukemia, not having achieved remission (principal); Z45.2 Encounter for adjustment and management of vascular access device
CPT/HCPCS: 36430; 36591; 80053; 86850; 86900; 86901; 86920; 86945; 85025; 86644; P9016

== ENCOUNTER 2023-03-05 11:51 | Outpatient (RCR) | payer MEDICARE, SELFPAY ==
[2023-02-27 00:10] VITALS: BP 146/77; PULSE 85; RESP 16; TEMP 36.5
[2023-03-05] MEDS: Normal Saline Flush 10 ML SYR IVP (08:35)
[2023-03-05 09:33] LABS: Abs Immature Grans 0.04 10^3/uL (0.0-0.06); Absolute Basophil Count 0.01 10^3/uL (0.0-0.2); Absolute Lymphocyte Count 0.71 10^3/uL (1.2-3.4); Absolute Monocyte Count 0.47 10^3/uL (0.1-0.8); Absolute Neutrophil Count 3.29 10^3/uL (1.2-6.7); Basophils % 0.2; Eosinophils % 2.2; HGB 10.3 g/dL (11.2-15.7); Immature Grans % 0.9; Lymphocytes % 15.4; MCH 30.9 pg (27.0-33.0); MCHC 33.2 % (32.0-36.0); MCV 93 fL (80-95); MPV 10.2 fL (8.0-11.0); Monocytes % 10.2; Neutrophils % 71.1; RBC 3.33 10^6/uL (3.93-5.22); RDW 18.9 % (11.7-14.6); WBC 4.62 10^3/uL (4.4-10.8)
[2023-03-05 09:52] LABS: Platelet Count 90 10^3/uL (130-400)
[2023-03-05 09:54] LABS: ALT 15 U/L (14-59); AST 12 U/L (15-37); Albumin 3.8 g/dL (3.4-5.0); Alkaline Phosphatase 101 U/L (46-116); Anion Gap 12.6 mmol/L (3-11); BUN 10 mg/dL (7-18); Bilirubin, Total 0.3 mg/dL (0.2-1.0); CO2 24.4 mmol/L (21.0-32.0); Calcium 9.7 mg/dL (8.5-10.1); Chloride 101 mmol/L (98-107); Estimated GFR 60.23 (mL/min/1.73m2); Glucose 115 mg/dL (74-106); Potassium 4.1 mmol/L (3.5-5.1); Sodium 138 mmol/L (136-145); Total Protein 7.8 g/dL (6.4-8.2)
== END 2023-03-29 23:59 | disposition home or self-care (01) ==
LOC: INF 11:51
PROVIDERS: Internal Medicine Hematology & Oncology; PCP Nurse Practitioner Family; Visit Provider Internal Medicine Hematology & Oncology
DX: C92.00 Acute myeloblastic leukemia, not having achieved remission (principal); Z45.2 Encounter for adjustment and management of vascular access device
CPT/HCPCS: 36591; 80053; 86900; 86901; 85025

== ENCOUNTER 2023-04-27 09:00 | Outpatient (RCR) | payer MEDICARE, SELFPAY ==
[2023-03-30 00:18] VITALS: BP 146/77; PULSE 85; RESP 16; TEMP 36.5
[2023-04-09] MEDS: Normal Saline Flush 10 ML SYR IVP (08:20)
[2023-04-09 08:41] LABS: Abs Immature Grans 0.43 10^3/uL (0.0-0.06); HCT 25.9 % (36.0-46.0); HGB 8.9 g/dL (11.2-15.7); MCH 28.6 pg (27.0-33.0); MCHC 34.4 % (32.0-36.0); MCV 83 fL (80-95); MPV 10.8 fL (8.0-11.0); RBC 3.11 10^6/uL (3.93-5.22); RDW 14.2 % (11.7-14.6); RDW-SD 43.3 fL; WBC 4.65 10^3/uL (4.4-10.8)
[2023-04-09 09:24] LABS: Absolute Basophil Count 0.05 10^3/uL (0.0-0.2); Absolute Eosinophil Count 0.05 10^3/uL (0.0-0.7); Absolute Lymphocyte Count 0.09 10^3/uL (1.2-3.4); Absolute Monocyte Count 0.93 10^3/uL (0.1-0.8); Absolute Neutrophil Count 3.53 10^3/uL (1.2-6.7); Bands % 5; Platelet Count 17 10^3/uL (130-400)
[2023-04-09 09:25] LABS: Diff Comment Manual Differential; Hypochromasia 2+
[2023-04-09 14:41] VITALS: BP 135/79; PULSE 87; RESP 17; TEMP 36.5; O2SAT 99
[2023-04-09 15:15] VITALS: BP 145/76; PULSE 82; RESP 17; TEMP 36; O2SAT 100
[2023-04-19] MEDS: Normal Saline Flush 10 ML SYR IVP (08:34)
[2023-04-19 08:44] LABS: Abs Immature Grans 0.04 10^3/uL (0.0-0.06); Absolute Basophil Count 0.02 10^3/uL (0.0-0.2); Absolute Eosinophil Count 0.01 10^3/uL (0.0-0.7); Absolute Lymphocyte Count 0.22 10^3/uL (1.2-3.4); Absolute Monocyte Count 0.75 10^3/uL (0.1-0.8); Absolute Neutrophil Count 2.48 10^3/uL (1.2-6.7); Basophils % 0.6; Eosinophils % 0.3; HCT 22.8 % (36.0-46.0); HGB 7.7 g/dL (11.2-15.7); Immature Grans % 1.1; Lymphocytes % 6.3; MCH 28.6 pg (27.0-33.0); MCHC 33.8 % (32.0-36.0); MCV 85 fL (80-95); MPV 11.7 fL (8.0-11.0); Monocytes % 21.3; Neutrophils % 70.4; RBC 2.69 10^6/uL (3.93-5.22); RDW-SD 38.5 fL; WBC 3.52 10^3/uL (4.4-10.8)
[2023-04-19 08:58] LABS: Diff Comment Diff Reviewed; Platelet Count 38 10^3/uL (130-400); RBC Morphology Normal
[2023-04-19 10:29] VITALS: BP 172/78; PULSE 77; RESP 17; TEMP 36.1; O2SAT 99
[2023-04-19 10:44] VITALS: BP 169/82; PULSE 77; RESP 17; TEMP 36; O2SAT 98
[2023-04-19 11:00] VITALS: BP 161/89; PULSE 70; RESP 17; TEMP 36; O2SAT 99
[2023-04-19 11:28] VITALS: BP 154/82; PULSE 73; RESP 17; TEMP 36.3; O2SAT 98
[2023-04-19 12:05] VITALS: BP 171/80; PULSE 73; RESP 17; TEMP 36.2; O2SAT 97
[2023-04-27 08:54] LABS: HCT 24.9 % (36.0-46.0); HGB 8.3 g/dL (11.2-15.7); MCH 28.8 pg (27.0-33.0); MCHC 33.3 % (32.0-36.0); MCV 87 fL (80-95); RBC 2.88 10^6/uL (3.93-5.22); RDW 15.8 % (11.7-14.6); RDW-SD 42.3 fL; WBC 4.58 10^3/uL (4.4-10.8)
[2023-04-27 09:01] LABS: ALT 10 U/L (14-59); AST 15 U/L (15-37); Albumin 3.9 g/dL (3.4-5.0); Alkaline Phosphatase 99 U/L (46-116); Anion Gap 12.9 mmol/L (3-11); BUN 20 mg/dL (7-18); Bilirubin, Total 0.4 mg/dL (0.2-1.0); CO2 24.1 mmol/L (21.0-32.0); Calcium 9.7 mg/dL (8.5-10.1); Chloride 102 mmol/L (98-107); Estimated GFR 26.22 (mL/min/1.73m2); Glucose 162 mg/dL (74-106); Magnesium 1.2 mg/dL (1.8-2.4); Potassium 3.6 mmol/L (3.5-5.1); Sodium 139 mmol/L (136-145); Total Protein 7.1 g/dL (6.4-8.2)
[2023-04-27 09:07] LABS: Platelet Count 75 10^3/uL (130-400)
[2023-04-27] MEDS: Normal Saline 1,000 ML 500 ML IV (09:08)
[2023-04-27 09:11] LABS: Absolute Eosinophil Count 0.14 10^3/uL (0.0-0.7); Absolute Lymphocyte Count 0.27 10^3/uL (1.2-3.4); Absolute Monocyte Count 1.01 10^3/uL (0.1-0.8); Absolute Neutrophil Count 3.16 10^3/uL (1.2-6.7)
[2023-04-27 09:12] LABS: Diff Comment Manual Differential; Hypochromasia 1+
[2023-04-27] MEDS: MAGNESIUM SULFATE 1 GM/100 ML BAG IVPB (09:25)
[2023-04-27] MEDS: Normal Saline Flush 10 ML SYR IVP (09:27)
[2023-04-27 10:36] VITALS: BP 187/77; PULSE 79; RESP 17; TEMP 36.9; O2SAT 100
[2023-04-27 10:51] VITALS: BP 182/80; PULSE 84; RESP 17; TEMP 36.7; O2SAT 98
[2023-04-27 11:11] VITALS: BP 182/72; PULSE 81; RESP 17; TEMP 36.6; O2SAT 99
[2023-04-27 11:40] VITALS: BP 179/79; PULSE 78; RESP 17; TEMP 36.6; O2SAT 99
[2023-04-27 12:25] VITALS: BP 188/79; PULSE 77; RESP 17; TEMP 36.7; O2SAT 98
[2023-04-27] MEDS: Heparin 500 UNITS/5 ML SYRINGE IV (12:38)
== END 2023-04-28 23:59 | disposition home or self-care (01) ==
LOC: INF 09:00
PROVIDERS: Internal Medicine; PCP Nurse Practitioner Family; Visit Provider Internal Medicine Hematology & Oncology
DX: C92.00 Acute myeloblastic leukemia, not having achieved remission (principal); Z45.2 Encounter for adjustment and management of vascular access device
CPT/HCPCS: 36430; 36591; 80053; 86850; 86900; 86901; 86920; 86945; 96360; 96361; 96365; P9073; 83735; 85025; J3475; P9016; P9035

== ENCOUNTER 2023-05-25 09:00 | Outpatient (RCR) | payer MEDICARE, SELFPAY ==
[2023-04-29 00:16] VITALS: BP 188/79; PULSE 77; RESP 17; TEMP 36.7
[2023-05-04 08:44] LABS: Abs Immature Grans 1.02 10^3/uL (0.0-0.06); Absolute Eosinophil Count 0.28 10^3/uL (0.0-0.7); Basophils % 0.6; Eosinophils % 1.8; HGB 9.8 g/dL (11.2-15.7); Immature Grans % 6.5; Lymphocytes % 5.9; MCH 29.7 pg (27.0-33.0); MCHC 33.8 % (32.0-36.0); MCV 88 fL (80-95); MPV 11.2 fL (8.0-11.0); Monocytes % 8.6; Neutrophils % 76.6; Nucleated RBC 0.3 % (0.0-0.3); Platelet Count 129 10^3/uL (130-400); RDW 16.4 % (11.7-14.6); RDW-SD 47.7 fL; WBC 15.64 10^3/uL (4.4-10.8)
[2023-05-04 08:48] LABS: Absolute Basophil Count 0.09 10^3/uL (0.0-0.2); Absolute Lymphocyte Count 0.92 10^3/uL (1.2-3.4); Absolute Monocyte Count 1.35 10^3/uL (0.1-0.8); Absolute Neutrophil Count 11.98 10^3/uL (1.2-6.7)
[2023-05-04 09:05] LABS: ALT 9 U/L (14-59); AST 12 U/L (15-37); Albumin 3.8 g/dL (3.4-5.0); Alkaline Phosphatase 88 U/L (46-116); BUN 22 mg/dL (7-18); Bilirubin, Total 0.2 mg/dL (0.2-1.0); CREATININE 1.4 mg/dL (0.55-1.02); Calcium 9.6 mg/dL (8.5-10.1); Chloride 102 mmol/L (98-107); Estimated GFR 40.22 (mL/min/1.73m2); Glucose 133 mg/dL (74-106); Magnesium 1.2 mg/dL (1.8-2.4); Sodium 139 mmol/L (136-145); Total Protein 7.1 g/dL (6.4-8.2)
[2023-05-04 09:09] LABS: Potassium 2.9 mmol/L (3.5-5.1)
[2023-05-04] MEDS: Normal Saline 1,000 ML 500 ML IV (09:14)
[2023-05-04] MEDS: Normal Saline Flush 10 ML SYR IVP (09:16)
[2023-05-04] MEDS: Heparin 500 UNITS/5 ML SYRINGE IV (09:17)
[2023-05-04] MEDS: MAGNESIUM SULFATE 1 GM/100 ML BAG IVPB (09:21)
[2023-05-04 09:24] LABS: Diff Comment Diff Reviewed; RBC Morphology Normal
[2023-05-04] MEDS: POTASSIUM CHLORIDE 20 MEQ/100 ML BAG 50 MEQ IVPB (10:51)
[2023-05-11] MEDS: Normal Saline Flush 10 ML SYR IVP (08:03)
[2023-05-11 08:31] LABS: Absolute Eosinophil Count 0.35 10^3/uL (0.0-0.7); Absolute Lymphocyte Count 1.01 10^3/uL (1.2-3.4); Absolute Monocyte Count 1.26 10^3/uL (0.1-0.8); Basophils % 0.2; Eosinophils % 2.1; HGB 10.3 g/dL (11.2-15.7); Immature Grans % 1.8; Lymphocytes % 6.1; MCH 29.9 pg (27.0-33.0); MCHC 33.2 % (32.0-36.0); MCV 90 fL (80-95); MPV 10.7 fL (8.0-11.0); Monocytes % 7.6; Neutrophils % 82.2; Platelet Count 174 10^3/uL (130-400); RBC 3.45 10^6/uL (3.93-5.22); RDW 19.3 % (11.7-14.6); RDW-SD 58.5 fL; WBC 16.58 10^3/uL (4.4-10.8)
[2023-05-11 08:32] LABS: Absolute Basophil Count 0.03 10^3/uL (0.0-0.2); Absolute Neutrophil Count 13.63 10^3/uL (1.2-6.7)
[2023-05-11 08:47] LABS: ALT 22 U/L (14-59); AST 11 U/L (15-37); Albumin 3.5 g/dL (3.4-5.0); Alkaline Phosphatase 86 U/L (46-116); Anion Gap 11.8 mmol/L (3-11); BUN 18 mg/dL (7-18); Bilirubin, Total 0.3 mg/dL (0.2-1.0); CO2 23.2 mmol/L (21.0-32.0); CREATININE 1.2 mg/dL (0.55-1.02); Calcium 9.2 mg/dL (8.5-10.1); Chloride 103 mmol/L (98-107); Estimated GFR 48.39 (mL/min/1.73m2); Glucose 169 mg/dL (74-106); Magnesium 1.5 mg/dL (1.8-2.4); Potassium 3.3 mmol/L (3.5-5.1); Sodium 138 mmol/L (136-145); Total Protein 6.9 g/dL (6.4-8.2)
[2023-05-11] MEDS: MAGNESIUM SULFATE 1 GM/100 ML BAG IVPB (09:24)
[2023-05-11] MEDS: Heparin 500 UNITS/5 ML SYRINGE IV (09:35)
[2023-05-18 08:35] LABS: Abs Immature Grans 0.11 10^3/uL (0.0-0.06); Absolute Basophil Count 0.02 10^3/uL (0.0-0.2); Absolute Eosinophil Count 0.08 10^3/uL (0.0-0.7); Absolute Monocyte Count 0.92 10^3/uL (0.1-0.8); Absolute Neutrophil Count 9.77 10^3/uL (1.2-6.7); Basophils % 0.2; Eosinophils % 0.7; HCT 28.2 % (36.0-46.0); HGB 9.3 g/dL (11.2-15.7); Immature Grans % 0.9; Lymphocytes % 6.8; MCH 30.6 pg (27.0-33.0); MCV 93 fL (80-95); MPV 10.3 fL (8.0-11.0); Monocytes % 7.9; Neutrophils % 83.5; Platelet Count 163 10^3/uL (130-400); RBC 3.04 10^6/uL (3.93-5.22); RDW 20.3 % (11.7-14.6); RDW-SD 63.7 fL
[2023-05-18 08:56] LABS: ALT 18 U/L (14-59); AST 9 U/L (15-37); Albumin 3.3 g/dL (3.4-5.0); Alkaline Phosphatase 84 U/L (46-116); Anion Gap 12.7 mmol/L (3-11); BUN 21 mg/dL (7-18); Bilirubin, Total 0.3 mg/dL (0.2-1.0); CO2 22.3 mmol/L (21.0-32.0); CREATININE 1.1 mg/dL (0.55-1.02); Calcium 9.3 mg/dL (8.5-10.1); Chloride 104 mmol/L (98-107); Estimated GFR 53.72 (mL/min/1.73m2); Glucose 170 mg/dL (74-106); Magnesium 1.3 mg/dL (1.8-2.4); Potassium 3.2 mmol/L (3.5-5.1); Sodium 139 mmol/L (136-145); Total Protein 6.5 g/dL (6.4-8.2)
[2023-05-18] MEDS: Normal Saline Flush 10 ML SYR IVP (09:24)
[2023-05-18] MEDS: MAGNESIUM SULFATE 1 GM/100 ML BAG IVPB (09:24)
[2023-05-18] MEDS: Heparin 500 UNITS/5 ML SYRINGE IV (09:25)
[2023-05-25] MEDS: Normal Saline Flush 10 ML SYR IVP (07:56)
[2023-05-25] MEDS: Heparin 500 UNITS/5 ML SYRINGE IV (07:57)
[2023-05-25 08:10] LABS: Abs Immature Grans 0.19 10^3/uL (0.0-0.06); Absolute Eosinophil Count 0.18 10^3/uL (0.0-0.7); Absolute Monocyte Count 0.67 10^3/uL (0.1-0.8); Basophils % 0.2; Eosinophils % 1.1; HCT 30.5 % (36.0-46.0); Immature Grans % 1.1; MCH 31.5 pg (27.0-33.0); MCHC 32.8 % (32.0-36.0); MCV 96 fL (80-95); MPV 10.9 fL (8.0-11.0); Neutrophils % 87.6; Platelet Count 173 10^3/uL (130-400); RBC 3.17 10^6/uL (3.93-5.22); RDW 21.4 % (11.7-14.6); RDW-SD 71.5 fL; WBC 16.67 10^3/uL (4.4-10.8)
[2023-05-25 08:13] LABS: Absolute Basophil Count 0.03 10^3/uL (0.0-0.2)
[2023-05-25 08:29] LABS: Anisocytosis 2+; Diff Comment RBC Morph Reviewed
[2023-05-25 08:38] LABS: ALT 58 U/L (14-59); AST 23 U/L (15-37); Albumin 3.6 g/dL (3.4-5.0); Alkaline Phosphatase 157 U/L (46-116); Anion Gap 12.7 mmol/L (3-11); BUN 25 mg/dL (7-18); Bilirubin, Total 0.3 mg/dL (0.2-1.0); CO2 24.3 mmol/L (21.0-32.0); CREATININE 1.2 mg/dL (0.55-1.02); Calcium 9.9 mg/dL (8.5-10.1); Chloride 102 mmol/L (98-107); Estimated GFR 48.39 (mL/min/1.73m2); Glucose 179 mg/dL (74-106); Magnesium 1.6 mg/dL (1.8-2.4); Potassium 4.5 mmol/L (3.5-5.1); Sodium 139 mmol/L (136-145)
[2023-05-25] MEDS: MAGNESIUM SULFATE 1 GM/100 ML BAG IVPB (08:58)
== END 2023-05-29 23:59 | disposition home or self-care (01) ==
LOC: INF 09:00
PROVIDERS: Internal Medicine; PCP Nurse Practitioner Family; Visit Provider Internal Medicine Hematology & Oncology
DX: C92.00 Acute myeloblastic leukemia, not having achieved remission (principal); Z45.2 Encounter for adjustment and management of vascular access device
CPT/HCPCS: 36591; 80053; 86900; 86901; 96360; 96361; 96365; 96366; 83735; 85025; J3475; J3480

== ENCOUNTER 2023-06-28 10:10 | Outpatient (CLI) | payer MEDICARE, SELFPAY | END 2023-06-28 10:11 | disposition home or self-care (01) | PROVIDERS: PCP Nurse Practitioner Family; Visit Provider Nurse Practitioner Family | DX: I48.91 Unspecified atrial fibrillation (principal) | CPT/HCPCS: 93246 ==

== ENCOUNTER → 2023-12-27 03:17 | Outpatient (CLI) | payer MEDICARE, SELFPAY ==
--- NOTE | 2023-12-27 08:15 | DI.DEXA_ITS ---
Exam(s) XR DEXA BONE DENSITY W/WO MAGDI EXAM: XR DEXA BONE DENSITY W/WO MAGDI CLINICAL HISTORY: osteopenia, asymptomatic state, postmenopausal state, M85.80, Z78.0 TECHNIQUE: mSpoke Horizon C densitometer analysis of left hip, lumbar spine and left forearm. Lat eral survey image of the thoracic and lumbar spine. COMPARISON: Two thousand six FINDINGS: Lateral view of the thoracic and lumbar spine shows no evidence of compression fractures. Bone mineral density measurements of the lumbar spine correspond to a total T-score of -1.8, in the osteopenic range. This is unchanged from the prior exam. Bone mineral density measurements of the left hip correspond to a total T-score of -1.9. This repre sents a 12.8 percent decrease from 2006.. The femoral neck T-score is -2.3, in the osteopenic range .. Theleft forearm bone mineral density measurements correspond to a T-score of the distal 3rd of -2.2, in the osteopenic range. The forearm was not analyzed in 2006. IMPRESSION: Osteopenia of the spine, hip and forearm.
--- NOTE | 2023-12-27 14:48 | DI.MAMMO_ITS ---
Exam(s) MAMMO SCREENING EXAM: MAMMO SCREENING CLINICAL HISTORY: screening, Z12.39 TECHNIQUE: Bilateral full field digital CC and MLO mammographic images were obtained with 3D tomosyn thesis and utilizing computer aided detection (CAD). COMPARISON: Available for comparison. FINDINGS: Masses/Architectural Distortion: None seen. Microcalcifications: No suspicious pleomorphic-type are seen. Skin Thickening/Nipple Retraction: None. IMPRESSION: 1. No significant interval change with no specific features of malignancy noted. 2. Unless there is more urgent need, screening mammography is recommended, as per [employer] [place] [employer] guidelines. BI-RADS Category 1 - Negative Breast Density - Category B - Scattered areas of fibroglandular density Breast density category C or D implies that the patient has dense breast tissue. Dense breast tissue is very common and is not abnormal but dense breast tissue can make it harder to find cancer on a ma mmogram. Also, dense breast tissue may increase their breast cancer risk. This information about the result of the mammogram report was provided to the patient to raise their awareness. Use this report when you speak with the patient about their risks for breast cancer, which includes their family hist ory. At that time, you may recommend for more screening tests (Ultrasound or MRI) as they might be us eful based on their risk. A negative radiographic report should not delay biopsy if a dominant or clinically suspicious mass is present. Up to ten percent of cancers are not identified on mammography. A negative report may reinforce clinical impression. Adenosis and dense breasts may obscure an underlying neoplasm. False positive reports average 6 to 10%. Patient will receive a letter notifying them of these results.
== END ==
PROVIDERS: PCP Nurse Practitioner Family; Visit Provider Nurse Practitioner Family
DX: Z78.0 Asymptomatic menopausal state; Z12.31 Encounter for screening mammogram for malignant neoplasm of breast; Z13.820 Encounter for screening for osteoporosis; M81.0 Age-related osteoporosis without current pathological fracture
CPT/HCPCS: 77063; 77067; 77080

== ENCOUNTER 2024-05-30 17:11 | Emergency (ER) | payer MEDICARE, SELFPAY ==
--- NOTE | 2024-05-30 17:00 | RT.EKG_ITS ---
APPROVED REPORT Exam: Resting ECG Reason for Exam: SOB Patient Location: E HR:113 bpm ECG Measurements Heart Rate 113 AXIS FL 144 P 67 QRSd 88 QRS 55 QT 326 T 59 QTc 445 Conclusion Sinus tachycardia...rate> 99 Multiple ventricular premature complexes...V complexes w/ short R-R intervls Anteroseptal infarct, old...Q >40mS, V1-V2
[2024-05-30 17:11] VITALS: BP 114/66; PULSE 113; RESP 16; TEMP 36.7; O2SAT 92
--- NOTE | 2024-05-30 17:29 | W.ED.GENAD ---
Discharge Plan Disposition Patient Disposition: Home Condition: Stable Discharge Details Clinical Impression: Bronchitis Primary Care Provider: Dominique Damon ED Provider: Darren Santos Home Meds and New Rx's Prescriptions: New prednisone 20 mg tablet 60 mg PO DAILY 4 Days Qty: 12 0RF doxycycline hyclate 100 mg tablet 100 mg PO BID Qty: 14 0RF Continued prochlorperazine maleate [Compazine] 10 mg tablet 10 mg PO Q6H PRN (Reason: nausea and vomiting) Qty: 90 1RF metoprolol succinate 50 mg tablet extended release 24 hr 50 mg PO DAILY Qty: 90 3RF sertraline 100 mg tablet 100 mg PO DAILY Qty: 90 3RF trazodone 50 mg tablet 50 mg PO DAILY PRN (Reason: insomnia) Qty: 90 3RF cholecalciferol (vitamin D3) 1,000 unit capsule 2,000 unit PO DAILY Qty: 90 folic acid 1 mg tablet 1 mg PO DAILY Qty: 30 0RF Rx Instructions: Per [facility] [place] [facility] [place] 10/18/22 simvastatin 20 mg tablet 20 mg PO HS Qty: 90 4RF amlodipine 10 mg tablet 10 mg PO DAILY Qty: 90 3RF magnesium oxide-Mg AA chelate 133 mg tablet 266 mg PO DAILY pantoprazole [Protonix] 40 mg tablet,delayed release (DR/EC) 40 mg PO DAILY Qty: 60 0RF Discharge Instructions Additional Instructions: Your x-ray and lab work did not show any significant concerning findings at this time. Follow-up with your primary care provider especially when improving this week If you feel more ill or have new symptoms such as severe worsening shortness of breath or persistent vomiting return to the emergency department for reevaluation HPI General Mode of arrival: ambulatory. Date/Time Provider Initiated Documentation: 05/30/24 17:11. Limitations to Documentation: no limitations. Information obtained by: patient. History of Present Illness 73 year old F presents to the emergency department with the chief complaint of cough, described as moderate, Patient started experiencing this day(s) (1) and it has been constant. No relieving factors improve symptom(s), No exacerbating factors reported . Patient notes denies chest pain, fever/chills and nausea/vomiting. Patient did receive the following treatments prior to arrival, none Related Data Home Medications ?Medication ?Instructions ?Recorded ?Confirmed cholecalciferol (vitamin D3) 25 2,000 unit PO DAILY #90 tab-caps 12/25/18 05/30/24 mcg (1,000 unit) capsule pantoprazole 40 mg tablet,delayed 40 mg PO DAILY #60 tabs 10/14/22 05/30/24 release (Protonix) folic acid 1 mg tablet 1 mg PO DAILY #30 tabs 11/17/22 05/30/24 prochlorperazine maleate 10 mg 10 mg PO Q6H PRN nausea and 11/27/22 05/30/24 tablet (Compazine) vomiting #90 tabs simvastatin 20 mg tablet 20 mg PO HS #90 tabs 04/11/23 05/30/24 metoprolol succinate 50 mg 50 mg PO DAILY #90 tabs 06/14/23 05/30/24 tablet,extended release 24 hr amlodipine 10 mg tablet 10 mg PO DAILY #90 tabs 08/01/23 05/30/24 magnesium oxide-magnesium amino 266 mg PO DAILY 10/03/23 05/30/24 acid chelate 133 mg tablet sertraline 100 mg tablet 100 mg PO DAILY #90 tabs 12/05/23 05/30/24 trazodone 50 mg tablet 50 mg PO DAILY PRN insomnia #90 12/05/23 05/30/24 tabs doxycycline hyclate 100 mg tablet 100 mg PO BID #14 tabs 05/30/24 prednisone 20 mg tablet 60 mg (3 x 20 mg) PO DAILY 4 days 05/30/24 #12 tabs Previous Rx's ?Medication ?Instructions ?Recorded pantoprazole 40 mg tablet,delayed 40 mg PO DAILY #60 tabs 10/14/22 release (Protonix) folic acid 1 mg tablet 1 mg PO DAILY #30 tabs 11/17/22 prochlorperazine maleate 10 mg 10 mg PO Q6H PRN nausea and 11/27/22 tablet (Compazine) vomiting #90 tabs simvastatin 20 mg tablet 20 mg PO HS #90 tabs 04/11/23 metoprolol succinate 50 mg 50 mg PO DAILY #90 tabs 06/14/23 tablet,extended release 24 hr amlodipine 10 mg tablet 10 mg PO DAILY #90 tabs 08/01/23 sertraline 100 mg tablet 100 mg PO DAILY #90 tabs 12/05/23 trazodone 50 mg tablet 50 mg PO DAILY PRN insomnia #90 12/05/23 tabs doxycycline hyclate 100 mg tablet 100 mg PO BID #14 tabs 05/30/24 prednisone 20 mg tablet 60 mg (3 x 20 mg) PO DAILY 4 days 05/30/24 #12 tabs Allergies Allergy/AdvReac Type Severity Reaction Status Date / Time Sulfa (Sulfonamide Allergy Intermediate swelling, Verified 05/30/24 17:19 Antibiotics) rash General Stated Complaint: SOB CHRISTOPHER: 3 Review of Systems All systems reviewed & are unremarkable except as noted in HPI and below Constitutional Constitutional: Denies chills, Denies fever(s) and Denies weakness Cardiovascular Cardiovascular: Denies chest pain and Reports dyspnea Respiratory Respiratory: Reports cough and Reports dyspnea Gastrointestinal Gastrointestinal: Denies abdominal pain, Denies nausea and Denies vomiting Neurologic Neurologic: Denies weakness Exam Const General: no acute distress Orientation: alert HENMT Head: normal to inspection Ears: external ears normal General nose exam: external nose normal Mouth: moist mucous membranes Eyes General: appearance normal, both eyes and all related structures Neck Neck: normal visual inspection Resp Effort & Inspection: normal respiratory effort and able to speak in complete sentences Auscultation: clear to auscultation bilaterally Cardio Jugular venous pressure: no JVD Rate: regular rate Heart Sounds: no murmurs Skin General skin exam: no rashes or lesions noted Neuro General: patient alert and patient oriented x3 Extrem General: normal to inspection Psych Mental Status: mental status grossly normal Course Vital Signs Vital signs: Vital Signs Temperature 36.7 C 05/30/24 17:11 Pulse 113 H 05/30/24 17:11 Respiratory Rate 16 05/30/24 17:11 Blood Pressure 114/66 05/30/24 17:11 Pulse Oximetry 92 05/30/24 17:11 Temperature 36.7 C 05/30/24 17:11 Temperature Source Temporal Artery Scan 05/30/24 17:11 Pulse 113 H 05/30/24 17:11 Respiratory Rate 16 05/30/24 17:11 Respiratory Effort Normal, Non-Labored 05/30/24 17:17 Blood Pressure 114/66 05/30/24 17:11 Blood Pressure Position Sitting 05/30/24 17:11 Pulse Oximetry 92 05/30/24 17:11 Oxygen Delivery Method Room Air 05/30/24 17:11 Oxygen Flow Rate 0 05/30/24 17:11 Pain Level 0 05/30/24 17:11 Medical Decision Making 73-year-old female with a history of rheumatoid arthritis, hypertension, hyperlipidemia, GERD who comes in with 1 day of cough and runny nose and when she has coughing she feels short of breath. She denies being on any immune modulators currently or chemotherapy. She denies any chest pain or chest pressure. She denies any abdominal pain or vomiting. She is speaking full sentences on exam, intermittent dry cough during exam. She is clear rhinorrhea, lung sounds are clear, no JVD, no leg swelling or calf tenderness. Her symptoms seem consistent with a respiratory infection, will check a CBC, CMP, procalcitonin and Fluvid along with a chest x-ray. X-ray unremarkable, labs show no significant abnormalities. Given patient's history of leukemia and also rheumatoid arthritis will initiate antibiotics to cover for early pneumonia with doxycycline. Also provide her inhaler as she says that this is helped in the past and also start prednisone. She will follow-up with her PCP if not improving and return precautions given. Differential Diagnosis Differential Diagnosis: URI, pneumonia, COVID Medical Records Medical records reviewed: Yes I reviewed the patient's medical records. Lab Data Lab results reviewed: Yes I reviewed the patient's lab results. 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 Goodrich Essential hypertension (Chronic) Hyperlipidemia (Chronic) Major depressive disorder, recurrent (Chronic) Generalized anxiety disorder (Chronic) GERD (gastroesophageal reflux disease) (Chronic) Herpes simplex labialis (Chronic) Osteopenia (Chronic) Dexa 01/2019 Vitamin D deficiency (Chronic) Medical History (Updated 05/30/24 @ 18:58 by Darren Santos MD) Paroxysmal atrial fibrillation (~2022) One episode during AML induction in 2022. 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 Son No problems noted. Maternal Grandfather , at 52 Multiple sclerosis Heart disease Maternal Grandmother , at 56 of stroke Stroke Heart disease Hypertension Paternal Grandfather , at 74 Lung cancer Paternal Grandmother , at 85 Dementia Social History Smoking/Tobacco Use Status: Former Tobacco Use Tobacco: How many years used: 20 Second Hand Exposure: No Smoking risk assessment performed?: Yes Alcohol Intake: former Drug use: Never Substance use type: does not use Caregiver/Support person: No Household members: none Housing: house Number of Children: 2 number of grandchildren: 5 Communication Needs: None Do you need help understanding health information?: Never 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 Pets and animals: Yes Pets and animals: cat(s) Sexually active: No Do you think of yourself as: straight/heterosexual Current gender identity: female What is your relationship status?: How often do you talk on the phone with friends or family?: three or more times per week How often do you get together with friends or relatives?: twice per week How often do you attend anabaptist or pentecostalism services?: 1-3 times per year Do you belong to any clubs or organized social groups?: no Panel score (0-1 are the most socially isolated patients): 1 What type of physical activity do you participate in: walking Duration: 15-30 minutes/day Frequency: 3-4 times per week Milla/Mandaen: Restorationism Special milla needs: No Seatbelt use: always Helmet use: No Drive intox or ride w/intox front end driver: No Additional Social history: Enjoys [id number] Female Reproductive History Menstrual Menopause type: natural History History 2 Para 2 Hx # Term Pregnancies Multiple births Hx # Pregnancies Ectopic pregnancies AB induced Hx Number of Living Children 2 AB spontaneous
[2024-05-30 18:09] LABS: Abs Immature Grans 0.01 10^3/uL (0.0-0.06); Absolute Monocyte Count 0.37 10^3/uL (0.1-0.8); Absolute Neutrophil Count 3.33 10^3/uL (1.2-6.7); HCT 32.7 % (36.0-46.0); HGB 10.4 g/dL (11.2-15.7); Immature Grans % 0.2 %; Lymphocytes % 22.9 %; MCH 27.4 pg (27.0-33.0); MCHC 31.8 % (32.0-36.0); MCV 86 fL (80-95); MPV 9.6 fL (8.0-11.0); Monocytes % 7.7 %; Neutrophils % 69.2 %; Platelet Count 161 10^3/uL (130-400); RDW 15.6 % (11.7-14.6); RDW-SD 49.7 fL; WBC 4.81 10^3/uL (4.4-10.8)
--- NOTE | 2024-05-30 18:22 | DI.RAD_ITS ---
Exam(s) XR CHEST 2V PA LATERAL EXAM: XR CHEST 2V PA LATERAL CLINICAL HISTORY: cough. TECHNIQUE: 2D digital imaging was performed. COMPARISON: No exams were available for comparison FINDINGS: 2 views: Distal tip of the right-sided Port-A-Cath is at SVC-RA junction Heart size is normal. The mediastinum is not widened. Lungs are clear. No infiltrates nor pleural effusions. No ominous pulmonary nodules. There is subsegmental platelike atelectasis in the lateral left lung b ase. IMPRESSION: There is subsegmental platelike atelectasis in the lateral left lung base. No other pulmonary findin gs and no pleural effusions evident. DATA REPOSITORY: RADIATION DOSE DELIVERED:
[2024-05-30 18:26] LABS: ALT 17 U/L (14-59); AST 18 U/L (15-37); Albumin 3.4 g/dL (3.4-5.0); Alkaline Phosphatase 76 U/L (46-116); Anion Gap 11.3 mmol/L (3-11); BUN 17 mg/dL (7-18); Bilirubin, Total 0.35 mg/dL (0.2-1.0); CO2 24.7 mmol/L (21.0-32.0); CREATININE 1.2 mg/dL (0.55-1.02); Calcium 8.5 mg/dL (8.5-10.1); Chloride 101 mmol/L (98-107); Estimated GFR 48.09 (mL/min/1.73m2); Glucose 116 mg/dL (74-106); Magnesium 1.6 mg/dL (1.8-2.4); Potassium 3.3 mmol/L (3.5-5.1); Sodium 137 mmol/L (136-145); Total Protein 6.8 g/dL (6.4-8.2)
[2024-05-30 18:30] LABS: INR 1.1 (0.9-1.1); PTT Activated 34.3 sec (23.6-32.8)
[2024-05-30 18:40] VITALS: BP 135/40; PULSE 99; RESP 18; O2SAT 93
[2024-05-30 18:45] LABS: Procalcitonin < 0.1 ng/mL
[2024-05-30 19:15] VITALS: BP 145/38; PULSE 93; RESP 18; O2SAT 95
[2024-05-30] MEDS: Doxycycline Hyclate 100 MG CAP PO (19:15)
[2024-05-30] MEDS: predniSONE 20 MG TAB 60 MG PO (19:15)
== END 2024-05-30 19:18 | disposition home or self-care (01) ==
PROVIDERS: Emergency Provider Emergency Medicine; PCP Nurse Practitioner Family
DX: R05.1 Acute cough (principal); R06.02 Shortness of breath; Z86.79 Personal history of other diseases of the circulatory system; M06.9 Rheumatoid arthritis, unspecified; J20.9 Acute bronchitis, unspecified
CPT/HCPCS: 36415; 80053; 84145; 86850; 86900; 86901; 87637; 93005; 99284; 71046; 83735; 85025; 85610; 85730; 93010; J7512

== ENCOUNTER 2024-06-19 11:50 | Outpatient (CLI) | payer MEDICARE, SELFPAY ==
--- NOTE | 2024-06-19 11:45 | RT.EKG_ITS ---
APPROVED REPORT Exam: Resting ECG Reason for Exam: heartburn Patient Location: O HR:76 bpm ECG Measurements Heart Rate 76 AXIS ID 155 P 68 QRSd 86 QRS 56 QT 384 T 45 QTc 432 Conclusion Sinus rhythm...normal P axis, V-rate 50- 99 Anteroseptal infarct, old...Q >40mS, V1-V2
== END 2024-06-19 11:51 | disposition home or self-care (01) ==
LOC: DI.CM 11:51
PROVIDERS: PCP Nurse Practitioner Family; Visit Provider Nurse Practitioner Family
DX: R00.0 Tachycardia, unspecified (principal)
CPT/HCPCS: 93010

== ENCOUNTER 2025-01-22 00:41 | Outpatient (CLI) | payer MEDICARE, SELFPAY ==
--- NOTE | 2025-01-22 07:30 | DI.MAMMO_ITS ---
Exam(s) MAMMO SCREENING EXAM: MAMMO SCREENING CLINICAL HISTORY: screening,Z12.39 TECHNIQUE: Mammograms were interpreted according to the usual protocol including computer analysis with CAD system, tomosynthesis and C-view imaging. COMPARISON: 2014 through 2023 FINDINGS: The breasts are composed of scattered fibroglandular densities, Breast Density category B. No suspicious masses or suspicious microcalcifications are seen. No skin thickening or abnormal axillary lymph nodes are seen. There has been no significant change from prior exams. IMPRESSION: BI-RADS Category 1, Negative mammogram Yearly screening mammography is recommended. Breast Density - Category B - There are scattered areas of fibroglandular density. Breast density Category C or D implies that the patient has dense breast tissue. Dense breast tissue can make it harder to find cancer on a mammogram. Dense breast tissue is also associated with an increased risk of breast cancer. This information about the result of the mammogram report was provided to the patient to raise their awareness. Use this report when you speak with the patient about their risks for breast cancer, which includes their family history. At that time, you may recommend additional screening tests (Ultrasound or MRI) as these tests may add significant information. A negative radiographic report should not delay biopsy if a dominant or clinically suspicious mass is present. Up to ten percent of cancers are not identified on mammography. A negative report may reinforce clinical impression. Adenosis and dense breasts may obscure an underlying neoplasm. False positive reports average 6 to 10%. Patient will receive a letter notifying them of these results.
== END 2025-01-22 01:01 ==
PROVIDERS: PCP Nurse Practitioner Family; Visit Provider Nurse Practitioner Family
DX: Z12.31 Encounter for screening mammogram for malignant neoplasm of breast (principal); R92.323 Mammographic fibroglandular density, bilateral breasts
CPT/HCPCS: 77063; 77067

== ENCOUNTER 2025-02-27 02:08 | Outpatient (CLI) | payer MEDICARE, SELFPAY ==
[2025-02-27 12:46] LABS: Hemoglobin A1C 5.9 % (<5.7)
[2025-02-27 13:03] LABS: Calculated LDL 108 mg/dL (<100); Cholesterol 206 mg/dL (<200); HDL Cholesterol 65 mg/dL (>or=50); Triglyceride 169 mg/dL (<150)
== END 2025-02-27 02:09 | disposition home or self-care (01) ==
LOC: LOS 02:08
PROVIDERS: PCP Nurse Practitioner Family; Visit Provider Nurse Practitioner Family
DX: R73.09 Other abnormal glucose (principal); Z00.00 Encounter for general adult medical examination without abnormal findings; E78.5 Hyperlipidemia, unspecified
CPT/HCPCS: 36415; 80061; 83036

== ENCOUNTER 2025-04-14 03:53 | Outpatient (CLI) | payer MEDICARE, SELFPAY ==
[2025-04-14 09:49] LABS: Abs Immature Grans 0.05 10^3/uL (0.0-0.06); HCT 38.6 % (36.0-46.0); HGB 11.7 g/dL (11.2-15.7); Immature Grans % 0.5 %; MCH 24.8 pg (27.0-33.0); MCHC 30.3 % (32.0-36.0); MCV 82 fL (80-95); MPV 9.6 fL (8.0-11.0); Platelet Count 302 10^3/uL (130-400); RBC 4.72 10^6/uL (3.93-5.22); RDW 17.6 % (11.7-14.6); RDW-SD 52.2 fL; WBC 10.05 10^3/uL (4.4-10.8)
[2025-04-14 10:41] LABS: ALT 22 U/L (14-59); AST 26 U/L (15-37); Albumin 3.9 g/dL (3.4-5.0); Alkaline Phosphatase 113 U/L (46-116); Anion Gap 11.7 mmol/L (3-11); BUN 12 mg/dL (7-18); Bilirubin, Total 0.5 mg/dL (0.2-1.0); CO2 26.3 mmol/L (21.0-32.0); Calcium 9.6 mg/dL (8.5-10.1); Chloride 102 mmol/L (98-107); Estimated GFR 59.49 (mL/min/1.73m2); Glucose 147 mg/dL (74-106); Potassium 3.7 mmol/L (3.5-5.1); Sodium 140 mmol/L (136-145); Total Protein 7.8 g/dL (6.4-8.2)
== END 2025-04-14 03:54 | disposition home or self-care (01) ==
LOC: LBO 03:53
PROVIDERS: PCP Nurse Practitioner Family; Visit Provider Nurse Practitioner Adult Health
DX: Z94.81 Bone marrow transplant status (principal)
CPT/HCPCS: 36415; 80053; 85025